=== PATIENT | male | born 1960 | race Caucasian/White ===

== ENCOUNTER 2024-01-20 15:26 | Outpatient (AMB) | payer BC, SELFPAY ==
--- NOTE | 2024-01-20 15:24 | MHC.PC.OV ---
Vital Signs 01/20/24 15:26 Height 6 ft Weight 175 lb 6 oz BMI 23.8 BP 126/64 Blood Pressure Location Lt brachial Position Sitting Respiration 16 Pulse 62 Pulse Source Pulse Oximeter Pulse Oximetry (%) 99 Oxygen Delivery Method Room Air Intake Visit Reasons: REC THERAPIST Intake Note: Patient is a new patient here to establish care for Right Shoulder pain radiating down to the wrist, DMII and Right Hip pain. Pt concern today is short term memory issue. Transferring care fromDr. Al Adler MD. Medical records have been requested today. Interactive Marketing Strategist Required: No Accompanied by: Self / Same As Patient Allergies sulfacetamide Allergy (Verified 01/20/24 15:44) Hives Medication List - Last Reconciled 01/20/24 by COLETTE Sun-Kassie ascorbic acid (vitamin C) mg PO atorvastatin 10 mg PO BEDTIME bupropion HCl (Wellbutrin XL) 300 mg PO QAM cyanocobalamin (vitamin B-12) 1,000 mcg PO DAILY levothyroxine 75 mcg PO DAILY lisinopril 10 mg PO DAILY magnesium oxide 420 mg PO DAILY metformin 1,000 mg PO BID omega-3 fatty acids 1,000 mg PO DAILY sertraline (Zoloft) 200 mg PO DAILY thiamine HCl (vitamin B1) 100 mg PO DAILY Tobacco use date assessed: 01/20/24 Dental Screening Dental Screen Date: 01/20/24 Did you have a dental visit in the last 12 months?: Yes Did you have a dental problem in the last 6 months where you did not have access to dental care?: No HPI REC THERAPIST HPI Details Patient is a 63-year-old male here today for a new patient visit. Previous PCP at [facility], was not satisfied with her care.. Patient has a past medical history significant for major depressive disorder, type 2 diabetes, hypothyroidism, hyperlipidemia, hypertension. Concerns--> reports over the last several months having right lower lumbar spine pain that sometimes radiates down right lower extremity. Also having right shoulder pain that radiates down into his biceps in right elbow. He has had x-rays of both his shoulder and his lower back that did show some mild evidence of arthritis. .. DMII: Has been well controlled with his diet and physical activity. He does takes metformin a 1000 b.i.d.. Today's A1c acceptable at 5.3. .. Hypothyroidism: Continues on levothyroxine 75 mcg and he reports TSH has been stable. 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 Cataracts, both eyes Chronic right shoulder pain Bilateral leg pain Anxiety Social History Housing: House Patient Tobacco Use Status: Never used Tobacco e-Cigarette/Vaping Use: Former Use service: No Current occupational status: employed Cognitive needs: No Hearing needs: Yes Vision needs: Yes Review of Systems Const Denies headache(s) Eyes Denies loss of vision ENT Denies vertigo, Denies dizziness, Denies headache(s) and Denies sore throat Card Denies chest pain, Denies leg edema and Denies lightheadedness Resp Denies cough, Denies hemoptysis and Denies wheezing GI Denies abdominal pain, Denies melena, Denies constipation, Denies diarrhea and Denies vomiting Denies dysuria, Denies urinary frequency and Denies urinary urgency Musc Denies arthralgias, Denies joint swelling, Denies numbness and Denies tingling Neuro Denies Abnormal speech present, Denies behavioral changes, Denies vertigo, Denies dizziness, Denies headache(s), Denies loss of vision, Denies memory loss, Denies numbness and Denies tingling Psych Denies anxiety, Denies behavioral changes, Denies depression, Denies memory loss and Denies panic attacks Branden/Lymph Denies easy bleeding and Denies easy bruising Aller/Immun Denies wheezing Physical exam (Primary Care) Vital Signs: Last Vital Signs Pulse 62 01/20/24 15:26 Resp 16 01/20/24 15:26 BP 126/64 01/20/24 15:26 Pulse Ox 99 01/20/24 15:26 Oxygen Delivery Method Room Air 01/20/24 15:26 BMI result Body Mass Index 23.8 Tobacco/Smoking Status: Tobacco use Status Tobacco use date assessed 01/20/24 01/20/24 15:34 Patient Tobacco Use Status Never used Tobacco 01/20/24 15:34 e-Cigarette/Vaping Use Former Use 01/20/24 15:34 Const General: healthy appearing, no acute distress, alert and awake Nutritional Appearance: well nourished Orientation/consciousness: oriented to person, oriented to place and oriented to time HENMT Ears: TM's normal bilaterally General nose exam: Normal nasal mucous membranes and turbinates present Eyes Conjunctivae: conjunctivae normal Sclerae: sclerae normal Pupils: Equal, round and reactive pupils present Neck Neck: Yes no lymphadenopathy and Yes no JVD Thyroid: Thyroid normal Carotids: no bruits Resp Effort & Inspection: normal respiratory effort and not tachypneic Auscultation: no crackles, no rales, no rhonchi and no wheezes Cardio Rate: regular rate Rhythm: regular rhythm Heart sounds: no murmurs and normal S1 and S2 GI Palpation (GI): Soft to palpation, nontender, no hepatomegaly and no splenomegaly Auscultation: normal bowel sounds Skin General skin exam: no rashes or lesions noted and dry skin Neuro General: oriented to person, oriented to place and oriented to time Cranial nerves: Yes Equal, round and reactive pupils present Speech: No Abnormal speech present Gait exam (Neuro): Normal gait present Motor exam (neuro): no tremor noted Extrem Right upper extremity: full ROM Left upper extremity: full ROM Right lower extremity: full ROM; no edema Left lower extremity: full ROM; no edema Psych Mental Status: mental status grossly normal Speech and movement: Normal speech and movement present Affect: normal affect Attitude: cooperative Thought process: Normal thought process present Results AMB Hemoglobin A1c AMB Hemoglobin A1c 5.3 % Last Edit by ARELY Bull on 01/20/24 16:07 Results Reviewed Results Reviewed: Laboratory Last Values Hgb A1c (Clinic) 5.3 % (4.0-6.0) 01/20/24 16:06 Assessment and Plan Assessment & Plan (1) Depression: Code(s): F32.A - Depression, unspecified Qualifiers: Active/Remission status: currently active Depression Type: major depressive disorder Major depression episode severity: mild Major depression recurrence: recurrent Qualified Code(s): F33.0 - Major depressive disorder, recurrent, mild Plan: Patient is followed by a psychiatrist and mental health therapist. He does report a lot of side her trauma that he still deals with. He does get his mental health medication from his mental health med provider. (2) Type 2 diabetes mellitus without obesity: Code(s): E11.9 - Type 2 diabetes mellitus without complications Plan: Patient has controlled type 2 diabetes and continues on metformin a 1000 b.i.d.. Today's A1c acceptable. Goal A1c is to remain below 7.0 (3) Lumbar spine pain: Code(s): M54.50 - Low back pain, unspecified Plan: Reports he has been having right lower lumbar spine pain. He does not recall any acute trauma or recent falls. He did have x-ray of his lumbar spine that did show spondylosis.. He does use [id number] NSAIDs with only minimal relief of his pain. Will send for repeat x-rays. He will likely benefit from physical therapy (4) Right shoulder pain: Code(s): M25.511 - Pain in right shoulder Qualifiers: Chronicity: chronic Qualified Code(s): M25.511 - Pain in right shoulder; G89.29 - Other chronic pain Plan: Reports right shoulder pain particularly when doing [id number] exercises. He does report some pain that radiates down into his biceps and right elbow. Likely has a tendinopathy in his right shoulder. He would like to see orthopedic for possible cortisone injection. (5) Hypothyroid: Code(s): E03.9 - Hypothyroidism, unspecified Qualifiers: Hypothyroidism type: unspecified Qualified Code(s): E03.9 - Hypothyroidism, unspecified Plan: Patient has long history of hypothyroidism. Did have hyperparathyroidism that was fixed surgically. Continues on levothyroxine 75 mcg. Will check TSH to assure normal. (6) HLD (hyperlipidemia): Code(s): E78.5 - Hyperlipidemia, unspecified Qualifiers: Hyperlipidemia type: mixed hyperlipidemia Qualified Code(s): E78.2 - Mixed hyperlipidemia Plan: Patient does continue on statin therapy without any notable side effects. Will check his lipid panel to ensure LDL below 100. Orders: Orders Comprehensive [facility]. Panel Fast 01/20/24 E11.9 - Type 2 diabetes mellitus without complications XR lumbar spine 2-3V 01/20/24 M54.50 - Low back pain, unspecified XR shoulder RT min 2V 01/20/24 G89.29 - Other chronic pain, M25.511 - Pain in right shoulder AMB Hemoglobin A1c 01/20/24 E11.9 - Type 2 diabetes mellitus without complications Lipid Panel 01/20/24 E78.5 - Hyperlipidemia, unspecified TSH reflex Free T4 01/20/24 E03.9 - Hypothyroidism, unspecified Prostate Specific Antigen Scr 01/20/24 E03.9 - Hypothyroidism, unspecified, Z12.5 - Encounter for screening for malignant neoplasm of prostate PT Evaluation and Treatment 01/20/24 M54.50 - Low back pain, unspecified Referrals Orthopedics Referral G89.29 - Other chronic pain, M25.511 - Pain in right shoulder Coding Level of Care Code Tele Est Pt Level 4 (03585) Diagnoses Mild episode of recurrent major depressive disorder F33.0 Active/Remission status: currently active Depression Type: major depressive disorder Major depression episode severity: mild Major depression recurrence: recurrent Type 2 diabetes mellitus without obesity E11.9 Lumbar spine pain M54.50 Chronic right shoulder pain M25.511; G89.29 Chronicity: chronic Hypothyroidism, unspecified type E03.9 Hypothyroidism type: unspecified Mixed hyperlipidemia E78.2 Hyperlipidemia type: mixed hyperlipidemia
[2024-01-20 15:26] VITALS: BP 126/64; PULSE 62; RESP 16; O2SAT 99; BMI 23.8
== END 2024-01-20 16:18 | disposition home or self-care (01) ==
PROVIDERS: PCP Physician Assistant; Visit Provider Physician Assistant
DX: E11.9 Type 2 diabetes mellitus without complications (principal)
CPT/HCPCS: 83036; 99214

== ENCOUNTER 2024-01-20 16:29 | Outpatient (REF) | payer BC, SELFPAY ==
--- NOTE | ~2024-01-20 | XR_ITS ---
EXAMINATION: XR LUMBOSACRAL SPINE CLINICAL INFORMATION: Low back pain COMPARISON: None available. TECHNIQUE: Three views of the lumbosacral spine. FINDINGS: Degenerative changes are present in the visualized lower thoracic spine. There is marked degenerative change noted at L2-L3 with endplate sclerosis osteophytes and grade 1 retrolisthesis. Mild disc space narrowing is present at L3-L4 and L5-S1. No bony destructive lesions or fractures. XR/XR lumbar spine 2-3V IMPRESSION: Degenerative changes as described above.
--- NOTE | ~2024-01-20 | XR_ITS ---
EXAMINATION: XR SHOULDER, RIGHT CLINICAL INFORMATION: Right shoulder pain COMPARISON: None available. TECHNIQUE: AP external rotation, Grashey, scapular Y, and axillary views of the right shoulder. FINDINGS: There is mild acromioclavicular osteoarthritis. Glenohumeral joint is well preserved. No fracture. Alignment is anatomic. Soft tissues are normal with no abnormal calcifications. XR/XR shoulder RT min 2V IMPRESSION: Mild acromioclavicular osteoarthritis.
== END 2024-01-20 16:30 | disposition home or self-care (01) ==
LOC: HO.XRAY 16:29
PROVIDERS: PCP Physician Assistant; Visit Provider Physician Assistant
DX: M54.50 Low back pain, unspecified (principal); M25.511 Pain in right shoulder; G89.29 Other chronic pain
CPT/HCPCS: 72100; 73030

== ENCOUNTER 2024-01-30 09:57 | Outpatient (AMB) | payer BC, SELFPAY ==
[2024-01-30 10:00] VITALS: BMI 23.7
--- NOTE | 2024-01-30 10:00 | A.OFFVIS_ITS ---
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 Patient reports his pain has been going on for about 3 years and is a 3 on the 1-10 pain scale. He states his pain is worse at the end of the day. He denies injury, injections, and surgery. He would like a cortisone injection. The patient did undergo left shoulder surgery several years ago performed by another provider. He reports mild intermittent discomfort in his left shoulder. He has tried Tylenol and anti-inflammatory medicines which gave him minimal relief. He would like to hold off on surgery for as long as possible. Allergies sulfacetamide Allergy (Verified 01/30/24 10:09) Hives Medication List - Last Reconciled 01/30/24 by Christofer Carballo MD ascorbic acid (vitamin C) mg PO atorvastatin 10 mg PO BEDTIME bupropion HCl (Wellbutrin XL) 300 mg PO QAM cyanocobalamin (vitamin B-12) 1,000 mcg PO DAILY levothyroxine 75 mcg PO DAILY 90 days lisinopril 10 mg PO DAILY magnesium oxide 420 mg PO DAILY metformin 1,000 mg PO BID omega-3 fatty acids 1,000 mg PO DAILY sertraline (Zoloft) 200 mg PO DAILY thiamine HCl (vitamin B1) 100 mg PO DAILY [facility] Medical History (Updated 01/30/24 @ 10:38 by Christofer Carballo MD) Acquired underactive thyroid Astigmatism Calculus of kidney in male Parathyroid hormone excess Unspecified essential hypertension Vitamin D deficiency Type 2 diabetes mellitus without obesity Slow heart rate History of varicose veins Right hip pain Elevated cholesterol with high triglycerides Gout Depression Chronic 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 Cataracts, both eyes Chronic right shoulder pain Bilateral leg pain Anxiety Social History (Updated 01/30/24 @ 10:10 by Christine Guzmán CMA) Housing: House Patient Tobacco Use Status: Never used Tobacco e-Cigarette/Vaping Use: Former Use service: No Current occupational status: employed Current occupation: [employer], Right hand dominate Cognitive needs: No Hearing needs: Yes Vision needs: Yes Physical Exam Vital Signs: BMI result Body Mass Index 23.7 Const Other: Well-nourished well-developed very friendly male awake alert and oriented x3 in no acute distress Extrem Other: Bilateral upper extremity examination shows good capillary refill, no skin lesions noted, normal sensation light touch Right shoulder examination shows almost full range motion when compared to his left shoulder, 4+ out of 5 strength with supraspinatus testing, positive impingement signs, tenderness over his acromioclavicular joint, no instability Office Procedures Joint Injection/Drain Joint Injection/Drain Primary Site: right shoulder Prep: site was prepped using aseptic technique Injected: 40 mg of, DepoMedrol and 1% plain lidocaine Procedure: The patient tolerated the procedure well Coding - Large joint Procedure code (CPT) selection complete Results Reviewed Results Reviewed: X-rays of the patient's right shoulder show severe acromioclavicular joint narrowing, a type 2 acromion, no acute bony abnormalities Assessment & Plan Assessment & Plan (1) Impingement of right shoulder: Code(s): M25.811 - Other specified joint disorders, right shoulder Plan Mr. Roberto presents with right shoulder pain due to impingement syndrome, acromioclavicular joint arthritis and rotator cuff tendinosis versus possible rotator cuff tearing. I had a lengthy discussion with the patient regarding the treatment options. The risks and benefits of a right shoulder cortisone injection were discussed at length with the patient. The patient wished to proceed with the injection. He tolerated the injection well. The do's and don'ts of lifting were discussed at length with the patient. He will follow up with me on an as-needed basis should his symptoms not plateau at an unacceptable level over the next few months. Feel free to call me at any time should questions regarding his orthopedic management arise. Thank you very much for asking me to see this very friendly gentleman. I spent 19 minutes in reviewing the patient's records and imaging studies, seeing the patient and documenting in the medical record. Orders: Orders AMB Joint Injection/Aspiration Today M25.811 - Other specified joint disorders, right shoulder Coding Level of Care Code New Pt Level 2 (91361) Diagnoses Impingement of right shoulder M25.811 CPT Codes Coding - Large joint: 61246 - Large joint ([id number])
== END 2024-01-30 10:35 | disposition home or self-care (01) ==
PROVIDERS: PCP Physician Assistant; Visit Provider Orthopaedic Surgery
DX: M25.811 Other specified joint disorders, right shoulder (principal)
CPT/HCPCS: 20610; 99204

== ENCOUNTER → 2024-01-30 09:57 | Outpatient (BNVA) | payer BC, SELFPAY | PROVIDERS: PCP Physician Assistant; Visit Provider Orthopaedic Surgery | DX: M25.811 Other specified joint disorders, right shoulder (principal) | CPT/HCPCS: 20610; J1020 ==

== ENCOUNTER 2024-06-30 08:33 | Outpatient (REF) | payer BC, SELFPAY ==
[2024-06-30 11:06] LABS: Alanine Aminotransferase 33 U/L (0-40); Albumin Level 4.4 g/dL (3.5-5.0); Alkaline Phosphatase 46 U/L (39-117); Anion Gap 9 (12-20); Aspartate Amino Transferase 30 U/L (5-37); Bilirubin Total 1.1 mg/dL (0.0-1.0); Blood Urea Nitrogen 18 mg/dL (9-16); Calcium 9.4 mg/dL (8.4-10.2); Carbon Dioxide 26 mmol/L (22-29); Chloride 108 mmol/L (96-108); Cholesterol 151 mg/dL (<200); Estimated Glomerular Filt Rate > 60; Glucose Fasting 112 mg/dL (60-99); HDL Cholesterol 48 mg/dL (>40); LDL Cholesterol Calculated 85 mg/dL (<100); Sodium 139 mmol/L (135-145); Total Protein 6.9 g/dL (6.5-8.0); Triglycerides 94 mg/dL (<150)
[2024-06-30 11:08] LABS: TSH reflex Free T4 2.14 uIU/mL (0.32-4.0)
[2024-06-30 11:31] LABS: Prostate Specific Antigen Scr 0.91 ng/mL (<0.05-4.0)
== END 2024-06-30 08:34 | disposition home or self-care (01) ==
LOC: HO.HMGCLDS 08:33
PROVIDERS: PCP Physician Assistant; Visit Provider Physician Assistant
DX: E11.9 Type 2 diabetes mellitus without complications (principal); E78.5 Hyperlipidemia, unspecified; E03.9 Hypothyroidism, unspecified; Z12.5 Encounter for screening for malignant neoplasm of prostate
CPT/HCPCS: 36415; 80053; 80061; 84153; 84443

== ENCOUNTER 2024-07-15 15:02 | Outpatient (AMB) | payer BC, SELFPAY ==
--- NOTE | 2024-07-15 15:03 | MHC.OFFVIS ---
Vital Signs 07/15/24 15:04 Height 6 ft Weight 175 lb BMI 23.7 Intake Visit Reasons: Right shoulder pain, Low back pain Intake Note: Brionna is a 63 year old Right hand dominate male who presents who presents today for a follow up for his right shoulder, last injection 01/30/24. Patient states that the last injection didn't help so he doesn't want to repeat. The patient does report progressively worsening low back pain which radiates into the posterior aspect of his right leg. The patient also reports intermittent weakness in his leg. He also has intermittent neck pain. He is not sure if he wants to get an MRI because of the potential [id number] cost. Allergies sulfacetamide Allergy (Verified 07/15/24 15:04) Hives Medication List - Last Reconciled 07/15/24 by Christofer Carballo MD ascorbic acid (vitamin C) mg PO atorvastatin 10 mg PO BEDTIME bupropion HCl XL (Wellbutrin XL) 300 mg PO QAM cyanocobalamin (vitamin B-12) 1,000 mcg PO DAILY levothyroxine 75 mcg PO DAILY 90 days lisinopril 10 mg PO DAILY magnesium oxide 420 mg PO DAILY metformin ER 750 mg PO DAILY 30 days omega-3 fatty acids 1,000 mg PO DAILY sertraline (Zoloft) 200 mg PO DAILY thiamine HCl (vitamin B1) 100 mg PO DAILY [facility] Medical History (Updated 07/15/24 @ 15:42 by Christofer Carballo MD) Acquired underactive thyroid Astigmatism Calculus of kidney in male Parathyroid hormone excess Unspecified essential hypertension Vitamin D deficiency Type 2 diabetes mellitus without obesity Slow heart rate History of varicose veins Right hip pain Elevated cholesterol with high triglycerides Gout Depression Chronic 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 Cataracts, both eyes Chronic right shoulder pain Bilateral leg pain Anxiety Social History (Updated 01/30/24 @ 10:10 by Christine Guzmán CMA) Housing: House Patient Tobacco Use Status: Never used Tobacco e-Cigarette/Vaping Use: Former Use service: No Current occupational status: employed Current occupation: [employer], Right hand dominate Cognitive needs: No Hearing needs: Yes Vision needs: Yes Physical Exam Vital Signs: BMI result Body Mass Index 23.7 Const Other: Well-nourished well-developed very friendly male awake alert and oriented x3 in no acute distress Back/Spine/Pelvis Other: Low back examination shows right-sided paraspinal muscle tenderness as well as tenderness over his right sacroiliac joint, no overlying skin lesions, positive straight leg raise test on the right at 70 degrees Extrem Other: Right shoulder examination shows almost full range of motion when compared to his left shoulder, 4+ out of 5 strength with testing of his supraspinatus muscle, no instability Assessment & Plan Assessment & Plan (1) Low back pain: Code(s): M54.50 - Low back pain, unspecified Category: Medical (2) Right shoulder pain: Code(s): M25.511 - Pain in right shoulder Category: Medical Qualifiers: Chronicity: chronic Qualified Code(s): M25.511 - Pain in right shoulder; G89.29 - Other chronic pain Plan Mr. Roberto presents with right shoulder pain due to impingement syndrome as well as low back pain which radiates into his right leg possibly due to lumbar stenosis or a disc herniation. I had a lengthy discussion with the patient regarding the treatment options. The patient wishes to hold off on another cortisone injection for now. I did place a referral to the pain management Department here at [facility] for further evaluation of his chronic neck and back pains. The patient does not wish to get an MRI at this time. He will follow up with me on an as-needed basis should his shoulder pain worsen in any way. Feel free to call me at any time should questions regarding his orthopedic management arise. I spent 20 minutes in reviewing the patient's records and imaging studies, seeing the patient and documenting in the medical record. Orders: Orders XR cervical spine 2V Today M54.2 - Cervicalgia Referrals Pain Management Referral M54.2 - Cervicalgia, M54.50 - Low back pain, unspecified Coding Level of Care Code Est Pt Level 3 (40639) Diagnoses Low back pain M54.50 Chronic right shoulder pain M25.511; G89.29 Chronicity: chronic
[2024-07-15 15:04] VITALS: BMI 23.7
== END 2024-07-15 15:34 | disposition home or self-care (01) ==
PROVIDERS: PCP Physician Assistant; Visit Provider Orthopaedic Surgery
DX: M54.50 Low back pain, unspecified (principal); M25.511 Pain in right shoulder; G89.29 Other chronic pain
CPT/HCPCS: 99213

== ENCOUNTER 2024-07-15 16:32 | Outpatient (REF) | payer BC, SELFPAY | END 2024-07-15 16:33 | disposition home or self-care (01) | LOC: HO.HOSX 16:32 | PROVIDERS: Visit Provider Orthopaedic Surgery | DX: Z13.89 Encounter for screening for other disorder (principal) ==

== ENCOUNTER 2024-07-29 08:40 | Outpatient (AMB) | payer BC, SELFPAY ==
--- NOTE | 2024-07-29 09:10 | A.OFFPC_ITS ---
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 Accompanied by: Spouse Allergies sulfacetamide Allergy (Verified 07/29/24 09:31) Hives Medication List - Last Reconciled 07/29/24 by Ernesto Sim PA-C ascorbic acid (vitamin C) mg PO atorvastatin 10 mg PO BEDTIME bupropion HCl XL (Wellbutrin XL) 300 mg PO QAM cyanocobalamin (vitamin B-12) 1,000 mcg PO DAILY levothyroxine 75 mcg PO DAILY 90 days lisinopril 10 mg PO DAILY magnesium oxide 420 mg PO DAILY metformin ER 750 mg PO DAILY 30 days omega-3 fatty acids 1,000 mg PO DAILY sertraline (Zoloft) 200 mg PO DAILY thiamine HCl (vitamin B1) 100 mg PO DAILY Tobacco use date assessed: 01/20/24 Fall risk assessment: No Falls in past year Last assessed Fall Risk: 07/29/24 Dental Screening Dental Screen Date: 01/20/24 HPI ?early stages of dementia HPI Details Patient is a 64-year-old male here today for follow-up visit Patient has a past medical history significant for major depressive disorder, type 2 diabetes, hypothyroidism, hyperlipidemia, hypertension. Concerns--> today patient has concerns about his memory. He reports often forgetting where he places things, often forgetting where he is going and trying to find words often. He did retire a few years ago from an [employer] position. Family is getting concerned about patient's mental health and memory impairment. He has been speaking with a psychiatrist though feels they are not helping him. He currently is on high doses of Wellbutrin and sertraline and will speak with a psychiatrist perhaps about reducing his doses. PLAN: Will send for brain MRI due to his memory issues to rule out a intracranial pathology, He is interested in establishing care with a neurologist .. Lumbar spine arthritis: Has seen Orthopedics for his lumbar spine arthritis and was referred to pain management for pain reduction modality. Unfortunately continues to have both neck and lower back pain and is willing to try a muscle relaxer to help reduce his pain. .. DMII: Has been well controlled with his diet and physical activity. He does takes metformin a 1000 b.i.d.. Today's A1c acceptable at 5.1. PLAN: Will reduce his metformin dose to a 1000 q.d. as his type 2 diabetes has been well controlled to reduce any occurrence of hypoglycemia .. Hypothyroidism: Continues on levothyroxine 75 mcg and he reports TSH has been stable. .. MDD: Does see a [employer] (Dr Jhaveri) whom he does not believe is helping him. Again we discussed his doses of mental health medication may be a bit too high. He does report feeling shaky and jittery at times which may be related to his Wellbutrin. Also continues on fairly high dose of Zoloft as well at 200 mg. He has upcoming appointment with the psychiatrist and will speak with them about reducing his dose mental health medication Laboratory Tests 06/30/24 08:38 Creatinine 1.04 Fasting Glucose 112 H Cholesterol 151 PSA Screen 0.91 TSH 2.14 [facility] Medical History (Updated 07/29/24 @ 09:57 by Ernesto Sim PA-C) Acquired underactive thyroid Astigmatism Calculus of kidney in male Parathyroid hormone excess Unspecified essential hypertension Vitamin D deficiency Type 2 diabetes mellitus without obesity Slow heart rate History of varicose veins Right hip pain Elevated cholesterol with high triglycerides Gout Depression Chronic 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 1. Little interest or pleasure in doing things: more than half the days 2. Feeling down, depressed, or hopeless: more than half the days 3. Trouble falling or staying asleep, or sleeping too much: nearly every day 4. Feeling tired or having little energy: more than half the days 5. Poor appetite or overeating: more than half the days 6. Feeling bad about yourself - or that you are a failure or have let yourself or your family down: more than half the days 7. Trouble concentrating on things, such as reading the newspaper or watching television: nearly every day 8. Moving or speaking so slowly that other people could have noticed. Or the opposite - being so fidgety or restless that you have been moving around a lot more than usual: more than half the days 9. Thoughts that you would be better off or of hurting yourself in some way: not at all Total score: 18 Depression Screening Interpretation: Positive Depression Screening Follow-up: Existing condition and In treatment Depression Screening Done: Yes 63823 - PHQ-9 Billing: Yes Source: Developed by Drs. Bladimir Terrell, Radha Mascorro, Ravin Tadeo and colleagues, with an educational andre from [employer]. Thrive Questionnaire Date Thrive assessed: 07/29/24 I am a: Patient What is your living situation today?: I have a place to live, but I am worried about losing it in the future Within the past 12 months, did the food you bought not last and you didn't have the money to get more?: Never true Within the past 12 months, did you worry whether your food would run out before you got money to buy more?: Never true Do you have trouble paying for medicines?: No Do you have trouble getting transportation to medical appointments?: No Do you have trouble paying your heating and electricity bill?: No Do you have trouble taking care of your child, family member or friend?: No Do you have trouble with day-to-day activities such as bathing, preparing meals, shopping, managing finances, etc.?: No Are you currently unemployed and looking for a job?: No Are you interested in more education?: No Please select the resources that you would like help with: None Currently or been in a relationship where the following occur: No concerns reported THRIVE Score: 1 AUDIT C Alcohol Use Questionnaire (AUDIT-C) 1. How often do you have a drink containing alcohol?: Never 3. How often do you have six or more drinks on one occasion?: Never Total Score: 0 BONIFACIO-7 AMB Questionnaire BONIFACIO-7 Date BONIFACIO - 7 assessed: 07/29/24 Feeling nervous, anxious, or on edge: 3 = Nearly every day Not being able to stop or control worryin = Nearly every day Worrying too much about different things: 3 = Nearly every day Trouble relaxin = Nearly every day Being so restless that it is hard to sit still: 3 = Nearly every day Becoming easily annoyed or irritable: 3 = Nearly every day Feeling afraid as if something awful might happen: 3 = Nearly every day Total BONIFACIO-7 score (0-4 normal; 5-9 mild; 10-14 moderate; 15-21 severe): 21 Source: Developed by Drs. Bladimir Terrell, Radha Mascorro, Ravin Tadeo and colleagues, with an educational andre from [employer]. BONIFACIO-7 Assessment Billing BONIFACIO-7 Assessment Tool: BONIFACIO-7 Assessment 51831 Review of Systems Const Denies headache(s) Eyes Denies loss of vision ENT Denies vertigo, Reports dizziness, Denies headache(s) and Denies sore throat Card Denies chest pain, Denies leg edema and Reports lightheadedness Resp Denies cough, Denies hemoptysis and Denies wheezing GI Denies abdominal pain, Denies melena, Denies constipation, Denies diarrhea and Denies vomiting Denies dysuria, Denies urinary frequency and Denies urinary urgency Musc Denies arthralgias, Denies joint swelling, Denies numbness and Denies tingling Neuro Denies Abnormal speech present, Denies behavioral changes, Denies vertigo, Reports dizziness, Denies headache(s), Denies loss of vision, Reports memory loss, Denies numbness and Denies tingling Psych Reports anxiety, Denies behavioral changes, Denies depression, Reports difficulty concentrating, Reports irritability, Reports memory loss and Denies panic attacks Branden/Lymph Denies easy bleeding and Denies easy bruising Aller/Immun Denies wheezing Physical exam (Primary Care) Vital Signs: Last Vital Signs Pulse 47 L 07/29/24 09:11 Resp 16 07/29/24 09:11 BP 144/80 H 07/29/24 09:11 Pulse Ox 100 07/29/24 09:11 Oxygen Delivery Method Room Air 07/29/24 09:11 BMI result Body Mass Index 23.3 Tobacco/Smoking Status: Tobacco use Status Tobacco use date assessed 01/20/24 07/29/24 09:23 Patient Tobacco Use Status Never used Tobacco 07/29/24 09:23 e-Cigarette/Vaping Use Former Use 07/29/24 09:23 PHQ-9: PHQ-9 Score PHQ-9: Total score 18 07/29/24 12:07 Depression Screening Interpretation: Positive Depression Screening Follow-up: Ex isting condition and In treatment Thrive Assessment: Date of Thrive Assessment Date Thrive assessed 07/29/24 07/29/24 09:23 Currently or been in a relationship where the following occur: No concerns reported Const General: healthy appearing, no acute distress, alert and awake Nutritional Appearance: well nourished Orientation/consciousness: oriented to person, oriented to place and oriented to time HENMT Ears: TM's normal bilaterally General nose exam: Normal nasal mucous membranes and turbinates present Eyes Conjunctivae: conjunctivae normal Sclerae: sclerae normal Pupils: Equal, round and reactive pupils present Neck Neck: Yes no lymphadenopathy and Yes no JVD Thyroid: Thyroid normal Carotids: no bruits Resp Effort & Inspection: normal respiratory effort and not tachypneic Auscultation: no crackles, no rales, no rhonchi and no wheezes Cardio Rate: regular rate Rhythm: regular rhythm Heart sounds: no murmurs and normal S1 and S2 GI Palpation (GI): Soft to palpation, nontender, no hepatomegaly and no splenomegaly Auscultation: normal bowel sounds Skin General skin exam: no rashes or lesions noted and dry skin Neuro General: oriented to person, oriented to place and oriented to time Cranial nerves: Yes Equal, round and reactive pupils present Speech: No Abnormal speech present Gait exam (Neuro): Normal gait present Motor exam (neuro): no tremor noted Extrem Right upper extremity: full ROM Left upper extremity: full ROM Right lower extremity: full ROM; no edema Left lower extremity: full ROM; no edema Psych Mental Status: mental status grossly normal Speech and movement: Normal speech and movement present Affect: normal affect Attitude: cooperative Thought process: Normal thought process present Results AMB Hemoglobin A1c AMB Hemoglobin A1c 5.1 % Last Edit by ARELY Bull on 07/29/24 12:08 Results Reviewed Results Reviewed: Laboratory Last Values Hgb A1c (Clinic) 5.1 % (4.0-6.0) 07/29/24 12:07 Assessment and Plan Assessment & Plan (1) Memory impairment: Code(s): R41.3 - Other amnesia Plan: As per HPI patient reports worsening memory impairment. Often forgetting where he places things and often getting lost while driving. He believes he has some kind of a dementia or Alzheimer's. Will start workup with brain MRI and refer to Neurology for his memory impairment. He is quite possible he has too high doses of SSRI and Wellbutrin as he is on Wellbutrin 300 mg and sertraline 200 mg. He does report signs symptoms of feeling a bit shaky and some numbness and tingling all over his head, does seem somewhat anxious today in office.. Advised to speak with a psychiatrist to perhaps reduced doses. Will also try to send patient for a neuropsych eval as he has been having progressive anxious and depressive symptoms along with some memory impairment. There does seem to be some neuropsych issue going on here. (2) Depression: Code(s): F32.A - Depression, unspecified Qualifiers: Active/Remission status: currently active Depression Type: major depressive disorder Major depression episode severity: mild Major depression recurrence: recurrent Qualified Code(s): F33.0 - Major depressive disorder, recurrent, mild Plan: Patient's PHQ-9 score positive for depression which has been existing condition for him.. Patient is followed by a psychiatrist and mental health therapist. He does report a lot of side her trauma that he still deals with. He does get his mental health medication from his mental health med provider. (3) Type 2 diabetes mellitus without obesity: Code(s): E11.9 - Type 2 diabetes mellitus without complications Plan: Patient has controlled type 2 diabetes and continues on metformin a 1000 b.i.d.. Today's A1c acceptable. Will decrease his metformin dose to a 1000 mg daily to reduce any occurrence of hypoglycemia Goal A1c is to remain below 7.0 (4) Lumbar spine pain: Code(s): M54.50 - Low back pain, unspecified Plan: Reports he has been having right lower lumbar spine pain. He does not recall any acute trauma or recent falls. He did have x-ray of his lumbar spine that did show spondylosis.. He does use [id number] NSAIDs with only minimal relief of his pain. Will try muscle relaxer to help reduce his pain. He will likely benefit from physical therapy (5) Hypothyroid: Code(s): E03.9 - Hypothyroidism, unspecified Qualifiers: Hypothyroidism type: unspecified Qualified Code(s): E03.9 - Hypothyroidism, unspecified Plan: Patient has long history of hypothyroidism. Did have hyperparathyroidism that was fixed surgically. Continues on levothyroxine 75 mcg. Will check TSH to assure normal. (6) HLD (hyperlipidemia): Code(s): E78.5 - Hyperlipidemia, unspecified Qualifiers: Hyperlipidemia type: mixed hyperlipidemia Qualified Code(s): E78.2 - Mixed hyperlipidemia Plan: Patient does continue on statin therapy without any notable side effects. Will check his lipid panel to ensure LDL below 100. (7) Cervical spine pain: Code(s): M54.2 - Cervicalgia Plan: Patient reports having cervical spine pain neck on radiates down his arm and up to the back of his head at times. Orders: Orders MR head/brain wo con 07/29/24 R41.3 - Other amnesia Lipid Panel 07/29/24 E78.2 - Mixed hyperlipidemia Comprehensive [place]. Panel Fast 07/29/24 E11.9 - Type 2 diabetes mellitus without complications Complete Blood Count no Diff 07/29/24 E11.9 - Type 2 diabetes mellitus without complications AMB Hemoglobin A1c 07/29/24 E11.9 - Type 2 diabetes mellitus without complications TSH reflex Free T4 07/29/24 E03.9 - Hypothyroidism, unspecified Referrals Neuropsychiatry Referral R41.3 - Other amnesia Medications: New blood-glucose meter (FreeStyle Crystal [place] Lite kit) As directed 1 ea 1RF E11.9 - Type 2 diabetes mellitus without complications cyclobenzaprine 5 mg PO BEDTIME 30 tabs 1RF 30 days M54.2 - Cervicalgia blood sugar diagnostic (FreeStyle Lite Strips) test once per day as needed 100 ea 3RF E11.9 - Type 2 diabetes mellitus without complications metformin ER 500 mg PO DAILY 90 tabs 1RF 90 days E11.9 - Type 2 diabetes mellitus without complications Discontinued metformin ER Discontinued Reason: Doctor's Order 750 mg PO DAILY 30 days 30 tabs 1RF E11.9 - Type 2 diabetes mellitus without complications Coding Level of Care Code Est Pt Level 4 (51661) Diagnoses Memory impairment R41.3 Mild episode of recurrent major depressive disorder F33.0 Active/Remission status: currently active Depression Type: major depressive disorder Major depression episode severity: mild Major depression recurrence: recurrent Type 2 diabetes mellitus without obesity E11.9 Lumbar spine pain M54.50 Hypothyroidism, unspecified type E03.9 Hypothyroidism type: unspecified Mixed hyperlipidemia E78.2 Hyperlipidemia type: mixed hyperlipidemia Cervical spine pain M54.2 Additional Codes BONIFACIO-7 Assessment Billing - BONIFACIO-7 Assessment Tool: BONIFACIO-7 Assessment 60995 ([id number])
[2024-07-29 09:11] VITALS: BP 144/80; PULSE 47; RESP 16; O2SAT 100; BMI 23.3
== END 2024-07-29 10:14 | disposition home or self-care (01) ==
PROVIDERS: PCP Physician Assistant; Visit Provider Physician Assistant
DX: E11.9 Type 2 diabetes mellitus without complications (principal)
CPT/HCPCS: 83036; 99214

== ENCOUNTER 2024-09-16 10:52 | Outpatient (REF) | payer BC, SELFPAY ==
--- NOTE | ~2024-09-16 | MR_ITS ---
EXAMINATION: MR BRAIN WITHOUT CONTRAST CLINICAL INFORMATION: Amnesia. COMPARISON: None available. TECHNIQUE: MRI of the brain was obtained using routine sequences without contrast. FINDINGS: No focal restricted diffusion is demonstrated to suggest acute or subacute cerebral ischemia. No evidence of acute or chronic hemorrhagic products on heme-sensitive imaging. Few nonspecific scattered foci of T2 FLAIR hyperintensity within the bifrontal lobes. No additional parenchymal signal abnormalities. Proportional prominence of the ventricles and sulcal spaces without evidence of obstructive hydrocephalus. No abnormal mass effect. No midline shift. Normal appearance of the pituitary gland. Normal positioning of the cerebellar tonsils. Normal arterial and venous vascular flow voids are present. Normal, homogeneous marrow signal. Mild mucosal thickening of the paranasal sinuses. No signal abnormalities within the mastoids. Bilateral lens extractions. MR/MR head/brain wo con IMPRESSION: 1. No acute intracranial abnormalities. 2. Minimal nonspecific white matter changes. Electronically signed by: Robert Turner DO 10/28/2024 05:52 AM [facility]
--- NOTE | 2024-09-16 11:08 | ECG_ITS ---
Test Reason : BRADYCARDIA Blood Pressure : / mmHG Vent. Rate : 058 BPM Atrial Rate : 058 BPM P-R Int : 148 ms QRS Dur : 084 ms QT Int : 420 ms P-R-T Axes : -19 058 047 degrees QTc Int : 412 ms Sinus bradycardia Otherwise normal ECG No previous ECGs available Referred By: Ernesto Sim Electronically Signed By:SHARITA LUCERO
== END 2024-09-16 10:53 | disposition home or self-care (01) ==
LOC: HO.MRI 10:52
PROVIDERS: PCP Physician Assistant; Visit Provider Physician Assistant
DX: R41.3 Other amnesia (principal); R00.1 Bradycardia, unspecified
CPT/HCPCS: 70551; 93005

== ENCOUNTER → 2024-09-16 11:08 | Outpatient (BNV) | payer BC, SELFPAY | PROVIDERS: PCP Physician Assistant; Visit Provider Internal Medicine | DX: R00.1 Bradycardia, unspecified (principal) | CPT/HCPCS: 93010 ==

== ENCOUNTER 2024-10-12 09:15 | Outpatient (AMB) | payer BC, SELFPAY ==
--- NOTE | 2024-10-12 09:19 | MHC.OFFWIV ---
Intake Vital Signs 10/12/24 09:21 Height 6 ft Weight 172 lb BMI 23.3 BP 122/80 Blood Pressure Location Rt brachial Position Sitting Pulse 51 Pulse Source Pulse Oximeter Pulse Oximetry (%) 97 Oxygen Delivery Method Room Air Intake Visit Reasons: EP ? Hernia in the groin area Intake Note: Patient here for hernia in groin are that has been present since this morning that is the size of a tennis ball. Patient Tobacco Use Status: Never used Tobacco Allergies sulfacetamide Allergy (Verified 10/12/24 09:23) Hives Do you need a note to return to daycare/school/sports/work: No HPI HPI Comments History of Present Illness Details The patient is a 64-year-old male presenting with a suspected hernia. The patient reports having awoken with a painful lump on the right side of the abdomen this morning, described as squishy, which he is unable to push back into place. The patient has experienced chronic back pain and a damaged rotator cuff, which have not been addressed due to financial constraints and lack of insurance coverage until Medicare eligibility in February. He expressed significant stress related to existing medical expenses and difficulty affording care, prioritizing essential living costs over medical visits. This acute lump is a new onset for him and is causing considerable discomfort and concern. He has a history of vascular problems and is managed for Type 2 Diabetes Mellitus. [facility] Medical History (Updated 10/12/24 @ 10:01 by Emmanuelle Mendez PA-C) Acquired underactive thyroid Astigmatism Calculus of kidney in male Parathyroid hormone excess Unspecified essential hypertension Vitamin D deficiency Type 2 diabetes mellitus without obesity Slow heart rate History of varicose veins Right hip pain Elevated cholesterol with high triglycerides Gout Depression Chronic 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 Cataracts, both eyes Chronic right shoulder pain Bilateral leg pain Anxiety Social History Housing: House Patient Tobacco Use Status: Never used Tobacco e-Cigarette/Vaping Use: Former Use service: No Current occupational status: employed Current occupation: [email or web address], Right hand dominate Cognitive needs: No Hearing needs: Yes Vision needs: Yes Review of Systems Const All systems reviewed & are unremarkable except as noted in HPI and below Physical Exam Vital Signs: Last Vital Signs Pulse 51 10/12/24 09:21 BP 122/80 10/12/24 09:21 Pulse Ox 97 10/12/24 09:21 Oxygen Delivery Method Room Air 10/12/24 09:21 BMI result Body Mass Index 23.3 Const General: cooperative, healthy appearing, well developed and acute distress (2/2 pain) mild Nutritional Appearance: average body habitus Orientation/consciousness: patient oriented x3 Limitations: no limitations HEENT Head: Yes normal to inspection Ears: hearing grossly normal bilaterally General nose exam: Normal external nose present Face and sinus: Yes normal facial exam Eyes General: appearance normal, both eyes and all related structures Neck Neck: Yes normal visual inspection and Yes full ROM Resp Effort & Inspection: normal respiratory effort and able to speak in complete sentences GI Inspection: Yes normal to inspection Palpation (GI): Soft to palpation, nontender and Hernia present (inguinal, non reducible) Skin General skin exam: no rashes or lesions noted Neuro General: patient oriented x3 Extrem General: Yes normal to inspection Assessment & Plan Assessment & Plan (1) Severe right inguinal pain: Code(s): R10.31 - Right lower quadrant pain Plan: The suspected hernia needs urgent evaluation, given the description of a non-reducible lump, which raises concern for potential incarceration or strangulation. The patient is advised to proceed to the emergency department for immediate imaging and assessment to determine the urgency of surgical intervention. Discussions included the risk of bowel ischemia in cases of strangulated hernia, necessitating prompt medical attention. The patient is encouraged to seek emergency care promptly, given the implications of delayed treatment. Patient is able to drive himself. Called [facility] ED with expect Patient was informed and verbally consented to the use of an ambient scribe for clinic note documentation during this visit. Coding Level of Care Code Est Pt Level 5 (55203) Diagnoses Severe right inguinal pain R10.31
[2024-10-12 09:21] VITALS: BP 122/80; PULSE 51; O2SAT 97; BMI 23.3
== END 2024-10-12 10:19 | disposition home or self-care (01) ==
PROVIDERS: PCP Physician Assistant; Visit Provider Physician Assistant
DX: R10.31 Right lower quadrant pain (principal)

== ENCOUNTER → 2024-10-12 09:15 | Outpatient (BNVA) | payer BC, SELFPAY | PROVIDERS: PCP Physician Assistant; Visit Provider Physician Assistant ==

== ENCOUNTER 2024-10-12 10:14 | Emergency (ER) | payer BC, SELFPAY ==
--- NOTE | ~2024-10-12 | CT_ITS ---
EXAMINATION: CT ABDOMEN AND PELVIS WITH CONTRAST CLINICAL INFORMATION: Incarcerated inguinal hernia. COMPARISON: None available. TECHNIQUE: Multidetector volumetric images were obtained from the superior aspect of the liver through the pubic symphysis following administration 85 mL of Omnipaque 350 intravenous contrast. Sagittal and coronal reformatted images were obtained on the technologist's workstation. Oral contrast: No This CT examination was performed using dose optimization techniques as appropriate, variously including the following: *Automated exposure control *Adjustment of mA and/or kV according to patient size (this includes techniques or standardized protocols for targeted exams where dose is matched to indication/reason for exam; i.e. extremities or head) *Use of iterative reconstruction technique DLP: 524 mGy-cm FINDINGS: LUNG BASES: The lung bases appear clear, with no evidence of inflammation or nodules. Heart normal in size. Partially imaged coronary arterial calcification. No pericardial effusion. LIVER, GALLBLADDER, AND BILIARY TREE: The liver appears unremarkable in size, shape, and attenuation. No focal hepatic lesion or biliary ductal dilatation is appreciated. Unremarkable appearance of the gallbladder. PANCREAS: Unremarkable SPLEEN: Unremarkable ADRENAL GLANDS: Unremarkable KIDNEYS AND URETERS: The kidneys appear unremarkable in size, shape, and attenuation. No hydronephrosis, hydroureter, or calculi seen. BLADDER: Unremarkable GASTROINTESTINAL TRACT: Stomach and small bowel appear unremarkable. Sigmoid diverticulosis without evidence of diverticulitis. Normal-appearing distal ileum. No evidence of appendicitis. ABDOMINAL WALL: A right inguinal hernia measures approximately 8 cm in length by 3.5 cm in diameter and contains only fat. LYMPH NODES: No evidence of adenopathy by size criteria. VASCULAR: Unremarkable PELVIC VISCERA: Enlarged prostate. OSSEOUS STRUCTURES: Unremarkable CT/CT abdomen pelvis w IV con IMPRESSION: No acute finding. A right inguinal hernia measures approximately 8 cm in length by 3.5 cm in diameter and contains only fat. Additional findings as above. Electronically signed by: Kenny Fontana MD 10/12/2024 02:27 PM [facility]
[2024-10-12 10:18] VITALS: BP 136/59; PULSE 57; RESP 18; TEMP 36.2; O2SAT 100; BMI 23.5
--- NOTE | 2024-10-12 10:24 | ED_ITS ---
HPI - General Adult General Chief complaint: General Medical Stated complaint: R Side Pain ? Herniated Intestine Time Seen by Provider: 10/12/24 10:24 Source: patient Mode of arrival: ambulatory Limitations: no limitations History of Present Illness ED Provider: Rodríguez HPI narrative: Patient is a 64-year-old male with history of T2DM, hypothyroidism, HLD, BONIFACIO presenting with complaint of sudden onset right inguinal pain and swelling since last night. Initially went to urgent care this am and was referred to the ED to rule out incarcerated hernia. Patient denies any pain or swelling to scrotum. Denies difficulty with urination. MD complaint: groin pain and swelling Onset (ago): hour(s) Quality: aching Associated symptoms: denies other symptoms Treatments prior to arrival: none Related Data Home Medications ?Medication ?Instructions ?Recorded ?Confirmed atorvastatin 10 mg tablet 10 mg PO BEDTIME 01/20/24 07/29/24 sertraline 100 mg tablet (Zoloft) 200 mg PO DAILY 01/20/24 07/29/24 Previous Rx's ?Medication ?Instructions ?Recorded blood sugar diagnostic (Accu-Chek #100 ea 07/30/24 Guide test strips) levothyroxine 75 mcg tablet 75 mcg PO DAILY 90 days #90 tabs 10/03/24 lisinopril 10 mg tablet 10 mg PO DAILY #90 tabs 10/08/24 metformin 500 mg tablet,extended 500 mg PO DAILY 90 days #90 tabs 10/12/24 release 24 hr Allergies Allergy/AdvReac Type Severity Reaction Status Date / Time sulfacetamide Allergy Hives Verified 10/12/24 10:18 Review of Systems 2 Review of Systems: As per HPI. 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 Cataracts, both eyes Chronic right shoulder pain Bilateral leg pain Anxiety Social History Social History Housing: House Patient Tobacco Use Status: Never used Tobacco Smoked in Last 30 Days: No e-Cigarette/Vaping Use: Former Use Use of substances other than those prescribed or required for medical reasons: No Advance Directives: No Advance Directives Information Provided: Yes Do you have a plan to hurt others: No Plan service: No Current occupational status: employed Current occupation: [employer], Right hand dominate Cognitive needs: No Hearing needs: Yes Vision needs: Yes Physical Exam ED Vital Signs: Vital Signs - 24 hr 10/12/24 10:18 10/12/24 10:42 10/12/24 11:06 Temperature 97.1 F 97.9 F Pulse Rate 57 51 Respiratory Rate 18 18 20 Blood Pressure 136/59 L 141/74 H Pulse Oximetry 100 100 Oxygen Delivery Method Room Air Room Air 10/12/24 14:00 Temperature 97.3 F Pulse Rate 50 Respiratory Rate 19 Blood Pressure 147/72 H Pulse Oximetry 100 Oxygen Delivery Method Room Air BMI result Body Mass Index 23.5 Vital signs have been reviewed and appear to be correct. Blood pressure normal. Heart rate normal. Respiratory rate normal. Temperature normal. Oxygen saturation normal. Const General: cooperative, healthy appearing and no acute distress Orientation/consciousness: oriented to person, oriented to place, oriented to time and patient oriented x3 Limitations: no limitations HENMT Head: Yes normocephalic and Yes atraumatic Ears: external ears normal General nose exam: Normal external nose present Face and sinus: Yes face symmetric Mouth: oropharynx normal and moist mucous membranes Throat: Yes uvula midline Eyes Pupils: Equal, round and reactive pupils present Neck Neck: Yes normal visual inspection and Yes supple Resp Effort & Inspection: normal respiratory effort and able to speak in complete sentences Auscultation: clear to auscultation bilaterally Cardio Rate: regular rate Rhythm: regular rhythm Heart sounds: S1 normal heart sound present and S2 normal heart sound present GI Palpation (GI): Soft to palpation and nontender Auscultation: normoactive bowel sounds Other: Exam chaperoned by CHARITY Garsia. General: Yes no CVA tenderness Male General Exam: Yes hernia (right) and Yes tenderness Scrotum: scrotum normal Back/Spine/Pelvis Back: no CVA tenderness Skin General skin exam: elasticity normal and turgor normal Neuro General: oriented to person, oriented to place, oriented to time, patient oriented x3, moves all extremities, no focal motor deficits and CN's II-XI intact bilaterally Cranial nerves: Yes Equal, round and reactive pupils present Cognition (Neuro): normal cognition Extrem General: Yes full ROM, Yes no pedal edema and Yes no calf tenderness Right lower extremity: foot Details: vascular exam Details: dorsalis pedis pulse present, posterior tibial pulse present and normal capillary refill Psych Mental Status: mental status grossly normal Affect: normal affect Thought process: Normal thought process present Medications Administered Discontinued Medications Generic Name Dose Route Start Last Admin Trade Name Deborah PRN Reason Stop Dose Admin Iohexol 100 ml 10/12/24 11:49 10/12/24 11:50 Iohexol 350 Mg/Ml 100 Ml Infus..Btl IV 10/12/24 11:50 85 ml ONCE ONE Administration Morphine Sulfate 4 mg 10/12/24 10:35 10/12/24 11:06 Morphine Sulfate 4 Mg/Ml Cartridge IVPUSH 10/12/24 10:36 4 mg ONCE ONE Administration Protocol Medical Decision Making Medical Decision Making [facility] Narrative: Patient is a 64-year-old male with history of T2DM, hypothyroidism, HLD, BONIFACIO presenting with complaint of sudden onset right inguinal pain and swelling since last night. On exam patient is awake, A+Ox3, VS WNL, afebrile, normal neurological exam without focal deficits, physical exam findings as above. Given reported symptoms and physical exam findings, initial differential includes inguinal hernia, incarcerated hernia, lymphadenopathy. Labs unremarkable. Urinalysis without evidence of infection. CT notable for right inguinal fat-containing hernia. My interpretation is in agreement with the radiologist's interpretation. Results discussed with patient and all questions answered. Will refer to General surgery for further evaluation and management. Return precautions discussed at bedside. Patient verbalized understanding of and agreement with plan. Differential Diagnosis Differential Diagnoses: The differential diagnosis associated with the presentation includes As per [facility] Admission/Observation Consideration of admission/observation: Escalation of care including admission/observation considered Patient would have been admitted to the hospital had their work up had any findings where hospital admission was appropriate and their clinical presentation warranted hospital admission. Lab Data [facility] Lab Attestation statement: I reviewed the patient's lab results. As per [facility] 10/12/24 10:27 10/12/24 10:27 Labs: Lab Results 11/25/24 11/25/24 11/25/24 Range/Units 10:27 13:30 14:34 WBC 6.0 (4.8-10.8) X10*3/uL RBC 4.75 (4.60-5.80) X10*6/uL Hgb 14.9 (14.0-18.0) g/dl Hct 42.3 (42.0-52.0) % MCV 89.1 (80.0-98.0) fL MCH 31.4 (27.0-33.0) pg MCHC 35.2 (31.0-36.0) g/dl RDW 12.3 (11.0-16.0) % Plt Count 181 (160-400) X10*3/uL MPV 9.8 (9.4-12.4) fL Immature Gran % (Auto) 0.2 (0.0-0.4) % Neut % (Auto) 56.6 (45-73) % Lymph % (Auto) 30.9 (20-40) % Sequoyah % (Auto) 8.0 (2-11) % Eos % (Auto) 4.0 (0-4) % Baso % (Auto) 0.3 (0-2) % Lymph # (Auto) 1.9 (1.2-4.9) X10*3/uL Sequoyah # (Auto) 0.5 (0.1-1.2) X10*3/uL Eos # (Auto) 0.2 (0.0-0.4) X10*3/uL Baso # (Auto) 0.0 (0.0-0.2) X10*3/uL Abs Immat Gran (auto) 0.01 (0.00-0.03) X10*3/uL Absolute Neuts (auto) 3.4 (2.0-8.3) x10*3/uL Absolute Nucleated RBC 0.000 (0.0-0.012) X10*3/uL Nucleated RBC % (auto) 0.0 (0.0-0.2) /100WBC Sodium 139 (135-145) mmol/L Potassium 4.3 (3.3-5.1) mmol/L Chloride 107 (96-108) mmol/L Carbon Dioxide 22 (22-29) mmol/L Anion Gap 14 (12-20) BUN 13 (9-16) mg/dL Creatinine 1.01 (0.5-1.4) mg/dL Estim Creat Clear Calc 81.1 Estimated GFR > 60 POC Glucose 92 (60-115) mg/dL Random Glucose 118 H (60-115) mg/dL Calcium 10.0 D (8.4-10.2) mg/dL Total Bilirubin 0.4 (0.0-1.0) mg/dL AST 45 H (5-37) U/L ALT 43 H (0-40) U/L Alkaline Phosphatase 74 (39-117) U/L Total Protein 6.9 (6.5-8.0) g/dL Albumin 4.4 (3.5-5.0) g/dL Urine Color Yellow Urine Appearance Clear Urine pH 6.5 (5.0-9.0) Ur Specific Cum[place] >= 1.030 H (1.005-1.025) Urine Protein Negative (Neg-Trace) mg/dL Urine Glucose (UA) Negative (Negative) mg/dL Urine Ketones Negative (Negative) mg/dL Urine Blood Negative (Negative) Urine Nitrite Negative (Negative) Ur Leukocyte Esterase Negative (Negative) Independent Interpretation I performed an independent interpretation of an: CT Scan Interpretation: Right inguinal fat containing hernia on CT Radiology Impression Discussion of test interpretation with radiology: I have reviewed the radiologist's reading. Radiologist Impression: CT/CT abdomen pelvis w IV con IMPRESSION: No acute finding. A right inguinal hernia measures approximately 8 cm in length by 3.5 cm in diameter and contains only fat. Additional findings as above. Electronically signed by: Kenny Fontana MD 10/12/2024 02:27 PM [facility] External Record Review External record reviewed: Inpatient record, Office record and Outpatient record Discharge Plan Discharge Clinical Impression: Hernia, inguinal, right Patient Disposition: Home, Self-Care Instructions: Inguinal Hernia (ED), Inguinal Hernia Repair (DC) Additional Instructions: You were evaluated in the emergency department today for groin pain. Your CT showed a right inguinal hernia which is NOT incarcerated (strangulated). Follow up with general surgery to discuss your options for repair. Return to the emergency department if you develop severe pain, difficulty urinating, fever, or any other concerning symptoms. Prescriptions: No Action (DME) Accu-Chek Guide test strips Strip See Rx Instructions .Route Qty: 100 1RF Rx Instructions: Test once a day as needed levothyroxine 75 mcg tablet 75 mcg PO DAILY 90 Days Qty: 90 1RF lisinopril 10 mg tablet 10 mg PO DAILY Qty: 90 1RF metformin 500 mg tablet extended release 24 hr 500 mg PO DAILY 90 Days Qty: 90 1RF sertraline [Zoloft] 100 mg tablet 200 mg PO DAILY atorvastatin 10 mg tablet 10 mg PO BEDTIME Referrals: [facility] [place] [facility] [Provider Group] Print Language: Argentine
[2024-10-12 10:42] VITALS: BP 141/74; PULSE 51; RESP 18; TEMP 36.6; O2SAT 100
[2024-10-12 10:42] LABS: MANUAL DIFF FLAG NO
[2024-10-12 10:44] LABS: Basophils Percent Auto 0.3 % (0-2); Eosinophils Absolute Auto 0.2 X10*3/uL (0.0-0.4); Hematocrit 42.3 % (42.0-52.0); Hemoglobin 14.9 g/dl (14.0-18.0); Imm Gran Abs Auto 0.01 X10*3/uL (0.00-0.03); Imm Gran Pct Auto 0.2 % (0.0-0.4); Lymphocytes Absolute Auto 1.9 X10*3/uL (1.2-4.9); Lymphocytes Percent Auto 30.9 % (20-40); Mean Corpuscular HGB Conc 35.2 g/dl (31.0-36.0); Mean Corpuscular Hemoglobin 31.4 pg (27.0-33.0); Mean Corpuscular Volume 89.1 fL (80.0-98.0); Mean Platelet Volume 9.8 fL (9.4-12.4); Monocytes Absolute Auto 0.5 X10*3/uL (0.1-1.2); Neutrophils Absolute Auto 3.4 x10*3/uL (2.0-8.3); Neutrophils Percent Auto 56.6 % (45-73); Platelet Count 181 X10*3/uL (160-400); Red Blood Count 4.75 X10*6/uL (4.60-5.80); Red Cell Distribution Width 12.3 % (11.0-16.0)
[2024-10-12 11:00] LABS: Alanine Aminotransferase 43 U/L (0-40); Albumin Level 4.4 g/dL (3.5-5.0); Alkaline Phosphatase 74 U/L (39-117); Anion Gap 14 (12-20); Aspartate Amino Transferase 45 U/L (5-37); Bilirubin Total 0.4 mg/dL (0.0-1.0); Blood Urea Nitrogen 13 mg/dL (9-16); Carbon Dioxide 22 mmol/L (22-29); Chloride 107 mmol/L (96-108); Creatinine Clr Calc Pharmacy 81.1; Estimated Glomerular Filt Rate > 60; Glucose Random 118 mg/dL (60-115); Potassium 4.3 mmol/L (3.3-5.1); Sodium 139 mmol/L (135-145); Total Protein 6.9 g/dL (6.5-8.0)
[2024-10-12 11:06] VITALS: RESP 20
[2024-10-12] MEDS: Morphine Sulfate 4 MG/ML CARTRIDGE IVPUSH (11:06)
[2024-10-12] MEDS: iohexoL 350 MG/ML 100 ML INFUS..BTL IV (11:50)
[2024-10-12 13:34] LABS: Glucose, Whole Blood 92 mg/dL (60-115)
[2024-10-12 14:00] VITALS: BP 147/72; PULSE 50; RESP 19; TEMP 36.3; O2SAT 100
[2024-10-12 14:45] LABS: Appearance Urine Clear; Color Urine Yellow; Glucose Urine UA Negative (Negative); Leukocyte Esterase Urine Negative (Negative); Nitrite Urine Negative (Negative); PH 6.5 (5.0-9.0); Specific Gravity - Urine >= 1.030 (1.005-1.025); Urine Blood Negative (Negative); Urine Ketones Negative (Negative); Urine Protein Negative (Neg-Trace)
[2024-10-12 16:04] VITALS: BP 140/70; PULSE 80; RESP 18; TEMP 36.3; O2SAT 100
== END 2024-10-12 16:05 | disposition home or self-care (01) ==
PROVIDERS: Emergency Provider Emergency Medicine; PCP Physician Assistant
DX: K40.90 Unilateral inguinal hernia, without obstruction or gangrene, not specified as recurrent (principal); R10.9 Unspecified abdominal pain; E11.9 Type 2 diabetes mellitus without complications
CPT/HCPCS: 36415; 74177; 80053; 81003; 82947; 85025; 96374; 99284; J2270; Q9967

== ENCOUNTER 2024-10-14 08:35 | Outpatient (AMB) | payer BC, SELFPAY ==
--- NOTE | 2024-10-14 08:45 | MHC.OFFVIS ---
Vital Signs 10/14/24 08:55 Height 6 ft Weight 172 lb BMI 23.3 BP 141/68 H Blood Pressure Location Rt brachial Position Sitting Pulse 49 L Intake Visit Reasons: Hernia, inguinal, right Intake Note: Patient referred after ER visit on 10-12-2024 for right inguinal hernia. Recently noticed about 1wk. Patient c/o: pain when walking, standing for long periods of time. Lump the size of a tennis ball on rt lower abd. ABD US: 10-12-2024. [employer]sembl[employer] Required: No Accompanied by: spouse Reta Allergies sulfacetamide Allergy (Verified 10/14/24 08:52) Hives HPI Comments Details: Patient presents with a symptomatic enlarging right inguinal hernia. He has had this several days time. He was seen emergency department and was referred here for the evaluation. Patient was occasional heavy lifting. He otherwise has regular bowel habits. No other GI issues or complaints. Chart was reviewed and patient evaluated [facility] Medical History (Updated 10/14/24 @ 08:54 by KATHY Orozco) H/O angiography History of left heart catheterization Acquired underactive thyroid Astigmatism Calculus of kidney in male Parathyroid hormone excess Unspecified essential hypertension Vitamin D deficiency Type 2 diabetes mellitus without obesity Slow heart rate History of varicose veins Right hip pain Elevated cholesterol with high triglycerides Gout Depression Chronic 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 Cataracts, both eyes Chronic right shoulder pain Bilateral leg pain Anxiety Social History Housing: House Patient Tobacco Use Status: Never used Tobacco e-Cigarette/Vaping Use: Former Use service: No Current occupational status: employed Current occupation: [employer], Right hand dominate Cognitive needs: No Hearing needs: Yes Vision needs: Yes Physical Exam Vital Signs: Last Vital Signs Pulse 49 L 10/14/24 08:55 BP 141/68 H 10/14/24 08:55 BMI result Body Mass Index 23.3 Chest Other: Chest breath sounds bilaterally, HS 1 in 2 GI Other: Patient was examined both supine and standing with Valsalva. Abdomen is soft benign. Left groin negative. Genitalia within normal limits. Moderately sized right inguinal hernia. Irreducible Assessment & Plan Assessment & Plan (1) S/P left rotator cuff repair: Code(s): Z98.890 - Other specified postprocedural states Plan: Risks, benefits, and alternatives of open right inguinal hernia repair with mesh reviewed with the patient and included but not limited to bleeding, infection, recurrence, numbness, pain, scarring the patient wished to proceed. All questions answered. Arrangements made for this. (2) Right inguinal hernia: Code(s): K40.90 - Unilateral inguinal hernia, without obstruction or gangrene, not specified as recurrent Category: Surgical Plan See above Coding Level of Care Code New Pt Level 5 (34314) Diagnoses S/P left rotator cuff repair Z98.890 Right inguinal hernia K40.90
[2024-10-14 08:55] VITALS: BP 141/68; PULSE 49; BMI 23.3
== END 2024-10-14 09:07 | disposition home or self-care (01) ==
PROVIDERS: PCP Physician Assistant; Visit Provider Surgery
DX: K40.90 Unilateral inguinal hernia, without obstruction or gangrene, not specified as recurrent (principal)
CPT/HCPCS: 99204

== ENCOUNTER 2024-10-29 07:32 | Day surgery (SDC) | payer BC, SELFPAY ==
[2024-10-27 07:45] VITALS: BMI 23.3
--- NOTE | 2024-10-28 09:34 | MHC.SHP ---
Pre-Procedural Eval Section A - 24 Hr Update-Section A only Date of Service: 10/29/24 The patient is an INPATIENT: No Changes since office visit: No Cold of Flu in the past 2 weeks, No New Medical Problems, No Changes in Medication and No Patient answered all questions Section B - Complete if H&P > 30 days Chief Complaint: Unilateral inguinal hernia, without obstruction or Allergies: Allergies Allergy/AdvReac Type Severity Reaction Status Date / Time sulfacetamide Allergy Hives Verified 10/14/24 08:52 Review of Systems Sugical H&P ROS: Negative: Constitution, Cardiovascular, Respiratory, Neurological, Psychiatric, Hem-Onc, Allergic/Immunologic, Gastrointestinal, Genitourinary, Musculoskeletal, Integumentary, Endocrine and Eyes/Ears/Nose/Throat Exam Surgical H&P Exam: Normal: HEENT, Normal: Heart, Normal: Lungs, Normal: Extremities, Normal: Abdomen, Normal: Skin and Normal: Neurological Plan I have reviewed the history and physical and performed a pertinent physical examination on my patient. No changes have occurred unless specified. Time Spent With Patient Time: Total time managing care of this patient today ____ minutes.
--- NOTE | 2024-10-28 10:03 | P.CONAN_ITS ---
Documented by User: Karey Fong NP 10/28/24 10:04 HPI - Anesthesia Eval Consult details Narrative: 64yo M for Right Hernia Inguinal Irreducible with mesh Medically optimized per PCP (pending cardiac referral d/t bradycardia and dizziness, but ok for procedure prior to cardiac eval) [facility] Active Problems Active Problems: All Active Problems (Updated 10/14/24 @ 08:54 by KATHY Orozco) Right inguinal hernia (Acute) Severe right inguinal pain (Acute) Slow heart rate (Acute) Cervical spine pain (Acute) BONIFACIO (generalized anxiety disorder) (Acute) Memory impairment (Acute) Low back pain (Acute) Neck pain (Acute) Impingement of right shoulder (Acute) HLD (hyperlipidemia) (Acute) Hypothyroid (Acute) Right shoulder pain (Acute) Lumbar spine pain (Acute) Depression (Acute) Type 2 diabetes mellitus without obesity (Acute) Past Medical History Medical History (Updated 10/14/24 @ 08:54 by KATHY Orozco) H/O angiography History of left heart catheterization Acquired underactive thyroid Astigmatism Calculus of kidney in male Parathyroid hormone excess Unspecified essential hypertension Vitamin D deficiency Type 2 diabetes mellitus without obesity Slow heart rate History of varicose veins Right hip pain Elevated cholesterol with high triglycerides Gout Depression Chronic 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 Cataracts, both eyes Chronic right shoulder pain Bilateral leg pain Anxiety Social History Social History Housing: House Are you a primary rn coronary care unit to a significant other at home: Yes Do you presently have visiting nurse or other home services: No Patient Tobacco Use Status: Never used Tobacco e-Cigarette/Vaping Use: Former Use Use of substances other than those prescribed or required for medical reasons: Yes Substance Use Type Other:: last smoked 10/28/24 Are you DNR?: Yes Advance Directives: No Advance Directives Information Provided: Yes service: No Current occupational status: employed Current occupation: [employer], Right hand dominate Cognitive needs: No Hearing needs: Yes Vision needs: Yes Meds Allergies Allergy/AdvReac Type Severity Reaction Status Date / Time sulfacetamide Allergy Hives Verified 10/14/24 08:52 Home Medications ?Medication ?Instructions ?Recorded ?Confirmed ?Last Taken ?Type atorvastatin 10 mg tablet 10 mg PO BEDTIME 01/20/24 10/29/24 Unknown History sertraline 100 mg tablet (Zoloft) 200 mg PO DAILY 01/20/24 10/29/24 Unknown History Exam Height,Weight and Vital Signs: Height 6 ft Weight 78.018 kg Pertinent Lab Results Pertinent Lab Results: Laboratory Tests 10/12/24 10:27 WBC 6.0 Hgb 14.9 Hct 42.3 Plt Count 181 Sodium 139 Potassium 4.3 Chloride 107 Carbon Dioxide 22 BUN 13 Creatinine 1.01 Narrative Narrative: EKG 08/2024 Vent. Rate : 058 BPM Atrial Rate : 058 BPM P-R Int : 148 ms QRS Dur : 084 ms QT Int : 420 ms P-R-T Axes : -19 058 047 degrees QTc Int : 412 ms Sinus bradycardia Otherwise normal ECG No previous ECGs available Assessment and Plan Assessment Anesthesia Assessment: Chart Reviewed Documented by User: Mireille David MD 10/29/24 11:22 [facility] Past Medical History Medical History (Updated 10/14/24 @ 08:54 by KATHY Orozco) H/O angiography History of left heart catheterization Acquired underactive thyroid Astigmatism Calculus of kidney in male Parathyroid hormone excess Unspecified essential hypertension Vitamin D deficiency Type 2 diabetes mellitus without obesity Slow heart rate History of varicose veins Right hip pain Elevated cholesterol with high triglycerides Gout Depression Chronic 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 Cataracts, both eyes Chronic right shoulder pain Bilateral leg pain Anxiety Family History Family history of problems with anesthesia: No Surgical History History of Problems with Anesthesia: No Social History Social History Housing: House Are you a primary rn coronary care unit to a significant other at home: Yes Do you presently have visiting nurse or other home services: No Patient Tobacco Use Status: Never used Tobacco e-Cigarette/Vaping Use: Former Use Use of substances other than those prescribed or required for medical reasons: Yes Substance Use Type Other:: last smoked 10/28/24 Are you DNR?: Yes Advance Directives: No Advance Directives Information Provided: Yes service: No Current occupational status: employed Current occupation: [employer], Right hand dominate Cognitive needs: No Hearing needs: Yes Vision needs: Yes Meds Allergies Allergy/AdvReac Type Severity Reaction Status Date / Time sulfacetamide Allergy Hives Verified 10/14/24 08:52 Home Medications ?Medication ?Instructions ?Recorded ?Confirmed ?Last Taken ?Type atorvastatin 10 mg tablet 10 mg PO BEDTIME 01/20/24 10/29/24 Unknown History sertraline 100 mg tablet (Zoloft) 200 mg PO DAILY 01/20/24 10/29/24 Unknown History Exam Airway Mallampati Class: II (caps laterally) TM Dist: >3cm Neck ROM: Full Heart: rrr Lungs: cta Assessment and Plan Assessment Anesthesia Assessment: Anesthesia Plan Discussed Final Anesthetic Review Family History of Problems with Anesthesia: No History of Problems with Anesthesia: No NPO: Yes ASA Class: II Final Preanesthetic Review: No Changes in Pt Med Stat, Meds/Allgs Chart Reviewed and Consent Obtained/Reviewed Patient Risk: Intermediate Procedure Risk: Low Anesthetic Plan Anesthetic Plan: MAC: Disposition: Standard PACU
[2024-10-29 08:04] VITALS: BMI 23.1
[2024-10-29 08:06] VITALS: BP 146/63; PULSE 38; RESP 16; TEMP 36.2; O2SAT 100
[2024-10-29] MEDS: Lactated Ringers 1,000 ML 100 ML IVCONT (08:34)
[2024-10-29 08:39] LABS: Glucose, Whole Blood 101 mg/dL (60-115)
--- NOTE | 2024-10-29 12:07 | P.OP_ITS ---
Operative Note Operative Note Date of Service: 10/29/24 Narrative: Preoperative diagnosis: [] Symptomatic right inguinal hernia Postop diagnosis: [] The same Procedure [] open right inguinal herniorrhaphy with Bard mesh Surgeon: [] Kalin Gas Combustion Engineer: [] Marcus Type of Anesthesia: [] MAC Indication for surgery: [] Very large indirect right inguinal hernia. Small direct right inguinal hernia. Findings: [] Patient brought to the operating room, placed on operative table i n supine position, after an adequate level of MAC anesthesia was induced, the right groin was prepped and draped in usual sterile fashion using a small right para inguinal incision, this carried down through skin, subcutaneous tissue, Amanda's fascia. External oblique fibers were opened their direction with care to isolate and preserve the ilioinguinal nerve throughout the procedure. Spermatic cord was identified and retracted from the field. Exploration of the cord demonstrated very large indirect hernia sac which was reduced. A small direct hernia was also reduced. A large Bard plug was placed in the indirect defect and this was sutured inferiorly to the inguinal ligament, and superiorly to the transversalis fascia using interrupted 0 Ethibond suture. Mesh also covered the inguinal floor. At completion of the procedure, mesh was in good position with no gaps or tension. Wound was irrigated, secured hemostasis, and closed in the following manner; external oblique fascia was closed using running 2-0 Vicryl suture. Amanda's fascia was reapproximated using interrupted 3-0 Vicryl suture. Interrupted inverted deep dermal 3-0 Vicryl sutures followed by running subcuticular 4-0 Vicryl sutures were placed. Steri-Strips and sterile dressings were applied. Wound was infiltrated at the beginning at the end of the case with 0.5% Marcaine/1% lidocaine. Sponge, needle, and instrument counts were reported correct. Patient tolerated the procedure well and emerged from anesthesia stable condition. EBL minimal. Ipsilateral testicle was intrascrotal at completion.
[2024-10-29 12:09] VITALS: BP 144/72; PULSE 64; RESP 16; TEMP 36.2; O2SAT 97
[2024-10-29 12:24] VITALS: BP 131/70; PULSE 57; RESP 16; O2SAT 100
[2024-10-29 12:39] VITALS: BP 153/72; PULSE 42; RESP 20; TEMP 36.4; O2SAT 100
== END 2024-10-29 13:35 | disposition home or self-care (01) ==
PROVIDERS: PCP Physician Assistant; Visit Provider Surgery
PROC: (CPT 49505; principal; 2024-10-29 10:10)
DX: K40.90 Unilateral inguinal hernia, without obstruction or gangrene, not specified as recurrent (principal); I10 Essential (primary) hypertension; E55.9 Vitamin D deficiency, unspecified; E78.2 Mixed hyperlipidemia; R00.1 Bradycardia, unspecified; E11.9 Type 2 diabetes mellitus without complications; M10.9 Gout, unspecified; F32.A Depression, unspecified; F41.1 Generalized anxiety disorder; Z87.442 Personal history of urinary calculi; Z79.84 Long term (current) use of oral hypoglycemic drugs; Z79.899 Other long term (current) drug therapy; Z88.2 Allergy status to sulfonamides; Z98.890 Other specified postprocedural states; Z66 Do not resuscitate
CPT/HCPCS: 49505; 82947; C1781; J0690; J2003; J2250; J2795; J3010

== ENCOUNTER → 2024-10-29 07:32 | Outpatient (BNV) | payer BC, SELFPAY | PROVIDERS: PCP Physician Assistant; Visit Provider Surgery | DX: K40.90 Unilateral inguinal hernia, without obstruction or gangrene, not specified as recurrent (principal) | CPT/HCPCS: 49505 ==

== ENCOUNTER 2024-11-09 10:31 | Outpatient (AMB) | payer BC, SELFPAY ==
--- NOTE | 2024-11-09 10:36 | A.OFFVIS_ITS ---
Intake Visit Reasons: S/P RIH w/mesh Intake Note: Patient here s/p RIH w/mesh. Reports site healing well. 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 Aside from incisional discomfort which is improving he is otherwise doing well. He is tolerating a diet. Having regular bowel habits. He is increasing his activity level. [facility] Medical History (Updated 10/14/24 @ 08:54 by KATHY Orozco) H/O angiography History of left heart catheterization Acquired underactive thyroid Astigmatism Calculus of kidney in male Parathyroid hormone excess Unspecified essential hypertension Vitamin D deficiency Type 2 diabetes mellitus without obesity Slow heart rate History of varicose veins Right hip pain Elevated cholesterol with high triglycerides Gout Depression Chronic 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 Cataracts, both eyes Chronic right shoulder pain Bilateral leg pain Anxiety Surgical History Right inguinal hernia Social History Housing: House Are you a primary child care development specialist to a significant other at home: Yes Do you presently have visiting nurse or other home services: No Patient Tobacco Use Status: Never used Tobacco e-Cigarette/Vaping Use: Former Use service: No Current occupational status: employed Current occupation: [employer], Right hand dominate Cognitive needs: No Hearing needs: Yes Vision needs: Yes Physical Exam GI Other: Abdomen is soft. Incision clean dry and intact healing very well Assessment & Plan Assessment & Plan (1) Status post inguinal hernia repair: Code(s): Z98.890 - Other specified postprocedural states; Z87.19 - Personal history of other diseases of the digestive system Category: Medical Plan Patient was been given local instructions including avoiding strenuous activities next few weeks time and will otherwise follow-up p.r.n.. All que stions answered. Coding Level of Care Code Global (25551) Diagnoses Status post inguinal hernia repair Z98.890; Z87.19
== END 2024-11-09 10:53 | disposition home or self-care (01) ==
PROVIDERS: PCP Physician Assistant; Visit Provider Surgery
DX: Z98.890 Other specified postprocedural states (principal); Z87.19 Personal history of other diseases of the digestive system
CPT/HCPCS: 99024

== ENCOUNTER 2025-01-05 13:30 | Outpatient (AMB) | payer BC, SELFPAY ==
--- NOTE | 2025-01-05 13:31 | AM.OFFWIN_ITS ---
Intake Vital Signs 01/05/25 13:34 Weight 187 lb BP 124/70 Blood Pressure Location Lt brachial Position Sitting Pulse 64 Pulse Source Pulse Oximeter Pulse Oximetry (%) 99 Oxygen Delivery Method Room Air Intake Visit Reasons: EP-rt hand 4th finger cut Intake Note: Patient here for cut on 4th finger of right hand and the tip of the finger on sheet metal. Patient Tobacco Use Status: Never used Tobacco Allergies sulfacetamide Allergy (Verified 01/05/25 13:35) Hives Do you need a note to return to daycare/school/sports/work: No HPI HPI Comments History of Present Illness Details History of Present Illness - The patient is a 64-year-old male pres enting with a laceration on the right fourth finger. - Sustained the injury the previous even ing around 8:00 PM on sheet metal while replacing a furnace filter. - Significant bleeding occurred, managed initially at home with pressure using sterile gauze. - Renewed bleeding was noted when the ad hered bandage was removed using water. - The patient?s last Tdap vaccination wa s in 2010, making him due for another considering the nature of the injury. - No injury to the nail bed or vascular compromise was observed. - Denies being on a blood thinner Physical Exam General: Cooperative, healthy appearing, comfortable, no acute distress and well developed Orientation: Patient oriented x3 Limitations: No limitations Head: Normal to inspection Ears: Hearing grossly normal bilaterally Nose: Normal external nose present Face and sinus: Normal facial exam Eyes: Appearance normal, both eyes and all related structures Neck: Normal visual inspection and Yes full ROM Respiratory: Normal respiratory effort and able to speak in complete sentences. Skin: No rashes or lesions noted Neuro: Patient oriented x3 Extremities: Normal to inspection, full range of motion in the right hand, neurovascularly intact, tip of 4th digit on right hand is missing, bleeding has stopped, no signs of infection noted. [facility] Medical History (Updated 01/05/25 @ 13:53 by Emmanuelle Mendez PA-C) H/O angiography History of left heart catheterization Acquired underactive thyroid Astigmatism Calculus of kidney in male Parathyroid hormone excess Unspecified essential hypertension Vitamin D deficiency Type 2 diabetes mellitus without obesity Slow heart rate History of varicose veins Right hip pain Elevated cholesterol with high triglycerides Gout Depression Chronic 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 Cataracts, both eyes Chronic right shoulder pain Bilateral leg pain Anxiety Surgical History Right inguinal hernia Social History Housing: House Are you a primary resident care manager to a significant other at home: Yes Do you presently have visiting nurse or other home services: No Patient Tobacco Use Status: Never used Tobacco e-Cigarette/Vaping Use: Former Use service: No Current occupational status: employed Current occupation: [employer] department [employer], Right hand dominate Cognitive needs: No Hearing needs: Yes Vision needs: Yes Review of Systems Const All systems reviewed & are unremarkable except as noted in HPI and below Physical Exam Vital Signs: Last Vital Signs Pulse 64 01/05/25 13:34 BP 124/70 01/05/25 13:34 Pulse Ox 99 01/05/25 13:34 Oxygen Delivery Method Room Air 01/05/25 13:34 Immunizations Boostrix Tdap 2.5 Lf unit-8 mcg-5 Lf/0.5 mL intramuscular syringe Performing Provider: Emmanuelle Mendez PA-C Performing Location: [facility] Administered by: ARELY Cheung on 01/05/25 14:01 Dose Route Admin Location Dispensed Lot Number Expiration Date NDC [employer] Consultant 0.5 mL IM Right Deltoid 0.5 mL [id number] 02/03/27 08991-240-72 [employer] VIS Given Date VIS Provided VIS Publication Date 01/05/25 Single Vaccine 21 Eligibility Eligibility Date Funding Source Not [facility] Eligible 01/05/25 Private Assessment & Plan Assessment & Plan (1) Laceration of finger: Code(s): S61.219A - Laceration without foreign body of unspecified finger without damage to nail, initial encounter Qualifiers: Damage to nail status: without damage Encounter type: initial encounter Finger: ring finger Foreign body presence: without foreign body Laterality: right Qualified Code(s): S61.214A - Laceration without foreign body of right ring finger without damage to nail, initial encounter Plan: The laceration on the right fourth finger will be managed conservatively without sutures due to its location; wound care will involve bacitracin and gauze to ensure it remains clean and dry. The patient is due for a Tdap vaccine, which will be administered owing to the injury's metal-associated risk. The wound shou ld remain covered, especially when in public, to avoid infection, and it will be uncovered at home when resting. Signs of infection such as redness, pain, or fever warrant reevaluation. Patient was informed and verbally consented to the use of an ambient scribe for clinic note documentation during this visit. Orders: Orders TDaP Immunization Today S61.219A - Laceration without foreign body of unspecified finger without damage to nail, initial encounter Coding Level of Care Code Est Pt Level 3 (36986) Diagnoses Laceration of right ring finger without foreign body without damage to nail, initial encounter S61.214A Damage to nail status: without damage Encounter type: initial encounter Finger: ring finger Foreign body presence: without foreign body Laterality: right
[2025-01-05 13:34] VITALS: BP 124/70; PULSE 64; O2SAT 99
== END 2025-01-05 14:09 | disposition home or self-care (01) ==
PROVIDERS: PCP Physician Assistant; Visit Provider Physician Assistant
DX: S61.214A Laceration without foreign body of right ring finger without damage to nail, initial encounter (principal)

== ENCOUNTER → 2025-01-05 13:30 | Outpatient (BNVA) | payer BC, SELFPAY | PROVIDERS: PCP Physician Assistant | DX: S61.214A Laceration without foreign body of right ring finger without damage to nail, initial encounter (principal); Z23 Encounter for immunization; W26.8XXA Contact with other sharp object(s), not elsewhere classified, initial encounter; Y93.89 Activity, other specified; Y92.9 Unspecified place or not applicable; Y99.9 Unspecified external cause status | CPT/HCPCS: 90471; 90715 ==

== ENCOUNTER 2025-03-01 08:55 | Outpatient (AMB) | payer BC, SELFPAY ==
--- NOTE | 2025-03-01 09:09 | A.OFFVIS_ITS ---
Vital Signs 03/01/25 09:16 Weight 181 lb 3.52 oz BP 160/72 H Blood Pressure Location Rt brachial Position Sitting Pulse 45 L Intake Visit Reasons: surgical site pain Intake Note: Patient scheduled today's appointment c/o pain at surgical site. HX: Right inguinal herniorrhaphy with Bard mesh on 10-29-2024 Patient c/o: constant Rt groin pain that never went away after surgery. Pain spreads to rt lower back, rt hip. Of note: pulse w/low reading. Patient states has not been able to address the pulse due to pain issues. Safe Expert Required: No Accompanied by: carlie Mcduffie Allergies sulfacetamide Allergy (Verified 03/01/25 09:18) Hives HPI Comments Details: Patient presents here for surgical wound evaluation. Patient has had a significant level of back issues and is concerned that this may be related to his hernia surgery. In the meantime, he is tolerating a diet. Having regular bowel habits. 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 Chart was reviewed and patient evaluated. He is known to me from hernia surgery this past October. Patient apparently has insurance issues and at present can not afford to be seen by a back surgeon/neurosurgeon/neurologist. [facility] Medical History (Updated 01/05/25 @ 13:53 by Emmanuelle Mendez PA-C) H/O angiography History of left heart catheterization Acquired underactive thyroid Astigmatism Calculus of kidney in male Parathyroid hormone excess Unspecified essential hypertension Vitamin D deficiency Type 2 diabetes mellitus without obesity Slow heart rate History of varicose veins Right hip pain Elevated cholesterol with high triglycerides Gout Depression Chronic 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 Cataracts, both eyes Chronic right shoulder pain Bilateral leg pain Anxiety Surgical History Right inguinal hernia Social History Housing: House Are you a primary care transition mgr to a significant other at home: Yes Do you presently have visiting nurse or other home services: No Patient Tobacco Use Status: Never used Tobacco e-Cigarette/Vaping Use: Former Use service: No Current occupational status: employed Current occupation: [employer] department [employer], Right hand dominate Cognitive needs: No Hearing needs: Yes Vision needs: Yes Physical Exam Vital Signs: Last Vital Signs Pulse 45 L 03/01/25 09:16 BP 160/72 H 03/01/25 09:16 GI Other: Patient was examined both supine and standing with Valsalva. Abdomen is soft benign. Left groin negative. Right groin incision well healed. No evidence of any recurrence. No evidence of any infection. Mild tenderness to palpation. Assessment & Plan Assessment & Plan (1) Inguinodynia, right: Code(s): R10.31 - Right lower quadrant pain Category: Surgical Plan At present, patient was reassured that doing a strenuous activities he has not caused any issues regarding the hernia. His symptoms seem more related regarding his back then his groin. However as noted above he can not at present afford to be seen by any physician regarding this. I recommend that he pursue this once his insurance issues have been resolved. From my perspective he is doing okay and will otherwise follow-up p.r.n.. All questions answered Coding Level of Care Code Est Pt Level 4 (39192) Diagnoses Inguinodynia, right R10.31
[2025-03-01 09:16] VITALS: BP 160/72; PULSE 45
== END 2025-03-01 09:29 | disposition home or self-care (01) ==
LOC: HO.HGS 08:56
PROVIDERS: PCP Physician Assistant; Visit Provider Surgery
DX: R10.31 Right lower quadrant pain (principal)
CPT/HCPCS: 99214

== ENCOUNTER → 2025-03-01 08:55 | Outpatient (BNVA) | payer BC, SELFPAY | PROVIDERS: PCP Physician Assistant; Visit Provider Surgery ==

== ENCOUNTER 2025-03-13 10:04 | Outpatient (AMB) | payer BC, SELFPAY ==
[2025-03-13 10:32] VITALS: BP 124/74; PULSE 61; RESP 17; TEMP 36.7; O2SAT 99; BMI 24.3
--- NOTE | 2025-03-13 10:32 | MHC.OFFWIV ---
Intake Vital Signs 03/13/25 10:32 Height 6 ft Weight 179 lb BMI 24.3 BP 124/74 Blood Pressure Location Lt brachial Position Sitting Respiration 17 Pulse 61 Pulse Source Pulse Oximeter Temp 98.1 F Temp Source Oral Pulse Oximetry (%) 99 Intake Visit Reasons: EP-Cough, SOB, sinus Intake Note: Pt is here today c/o cough, SOB and sinus congestion x1week Patient Tobacco Use Status: Never used Tobacco Allergies sulfacetamide Allergy (Verified 03/13/25 10:33) Hives Medication List - Last Reconciled 03/13/25 by Gee Gamboa MD atorvastatin 10 mg PO BEDTIME 90 days blood sugar diagnostic (Accu-Chek Guide test strips) Test once a day as needed levothyroxine 75 mcg PO DAILY 90 days lisinopril 10 mg PO DAILY metformin ER 500 mg PO DAILY 90 days sertraline (Zoloft) 200 mg PO DAILY HPI EP-Cough, SOB, sinus HPI Details Screening for the past several days. No fevers or chills. Very productive cough. [facility] Medical History (Updated 03/13/25 @ 11:47 by Gee Gamboa MD) H/O angiography History of left heart catheterization Acquired underactive thyroid Astigmatism Calculus of kidney in male Parathyroid hormone excess Unspecified essential hypertension Vitamin D deficiency Type 2 diabetes mellitus without obesity Slow heart rate History of varicose veins Right hip pain Elevated cholesterol with high triglycerides Gout Depression Chronic 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 Cataracts, both eyes Chronic right shoulder pain Bilateral leg pain Anxiety Surgical History Right inguinal hernia Social History Housing: House Are you a primary care coordination manager to a significant other at home: Yes Do you presently have visiting nurse or other home services: No Patient Tobacco Use Status: Never used Tobacco e-Cigarette/Vaping Use: Former Use service: No Current occupational status: employed Current occupation: [employer], Right hand dominate Cognitive needs: No Hearing needs: Yes Vision needs: Yes Review of Systems Const Denies chills, Denies fatigue, Denies fever(s), Denies headache(s) and Denies weakness ENT Details: Nasal congestion Denies dizziness and Denies headache(s) Card Denies chest pain, Denies lightheadedness, Reports dyspnea and Denies other (Palpitations) Resp Reports cough, Reports dyspnea, Denies wheezing and Denies other ( shortness of breath) Musc Denies numbness and Denies tingling Neuro Denies dizziness, Denies headache(s), Denies numbness, Denies tingling, Denies paresthesias and Denies weakness Psych Denies anxiety and Denies depression Endo Denies fatigue Aller/Immun Denies wheezing Physical Exam Vital Signs: Last Vital Signs Temp 98.1 F 03/13/25 10:32 Pulse 61 03/13/25 10:32 Resp 17 03/13/25 10:32 BP 124/74 03/13/25 10:32 Pulse Ox 99 03/13/25 10:32 BMI result Body Mass Index 24.3 Const Other: Appears mildly ill General: no acute distress and well developed Nutritional Appearance: well nourished Orientation/consciousness: patient oriented x3 HEENT Head: Yes normocephalic and Yes atraumatic Eyes General: appearance normal, both eyes and all related structures Pupils: Equal, round and reactive pupils present EOM: EOMs intact bilaterally Resp Other: Coarse breath sounds with upper airway secretions sounds. No decreased breath sounds No wheezing Effort & Inspection: normal respiratory effort Cardio Rate: regular rate Rhythm: regular rhythm Heart sounds: S1 normal heart sound present, S2 normal heart sound present, no gallops, no murmurs and no rubs Neuro General: patient oriented x3 and gait normal Cranial nerves: Yes Equal, round and reactive pupils present Psych Affect: normal affect Assessment & Plan Assessment & Plan (1) Bronchitis: Code(s): J40 - Bronchitis, not specified as acute or chronic Plan: Likely bronchitis with possible underlying viral illness. Possible bacterial overgrowth bronchitis Will give him a script for a Z-Elias and some prednisone. Hydrate well and get plenty of rest Good hand hygiene Can not rule out COVID/flu/RSV. Nasal swab sent to the lab Orders: Orders SARS-CoV2/FLU/RSV Today R05.9 - Cough, unspecified, Z20.822 - Contact with and (suspected) exposure to COVID-19 Medications: New azithromycin (Zithromax Z-Elias) take 500 mg today (day 1), then 250 mg for 4 days (days 2-5) PO 5 days 6 tabs 0RF prednisone 40 mg (2 x 20 mg) PO DAILY 5 days 10 tabs 0RF Coding Level of Care Code Est Pt Level 3 (83599) Diagnoses Bronchitis J40
== END 2025-03-13 11:48 | disposition home or self-care (01) ==
LOC: HO.HMCWIC 10:04
PROVIDERS: PCP Physician Assistant; Visit Provider Family Medicine
DX: J40 Bronchitis, not specified as acute or chronic (principal)

== ENCOUNTER 2025-03-13 10:04 | Outpatient (REF) | payer BC, SELFPAY ==
[2025-03-13 14:54] LABS: Influenza A PCR NEGATIVE (Negative); Influenza B PCR NEGATIVE (Negative); Resp Syncy Virus RNA Qual PCR NEGATIVE (Negative); SARS COV2 PCR INHOUSE NEGATIVE (Negative)
== END 2025-03-13 10:05 | disposition home or self-care (01) ==
LOC: HO.LAB 10:04
PROVIDERS: PCP Physician Assistant; Visit Provider Family Medicine
DX: J40 Bronchitis, not specified as acute or chronic (principal); Z20.822 Contact with and (suspected) exposure to COVID-19; R05.8 Other specified cough
CPT/HCPCS: 0241U

== ENCOUNTER 2025-03-22 14:59 | Outpatient (AMB) | payer BC, SELFPAY ==
[2025-03-22 15:03] VITALS: BP 124/70; PULSE 75; O2SAT 98; BMI 24.5
--- NOTE | 2025-03-22 15:03 | A.OFFPC_ITS ---
Vital Signs 03/22/25 15:03 Height 6 ft Weight 181 lb BMI 24.5 BP 124/70 Blood Pressure Location Lt brachial Position Sitting Pulse 75 Pulse Source Pulse Oximeter Pulse Oximetry (%) 98 Oxygen Delivery Method Room Air Intake Visit Reasons: MAREN Sim Allergies sulfacetamide Allergy (Verified 03/22/25 15:07) Hives Medication List - Last Reconciled 03/22/25 by Rodriguez Gray MD atorvastatin 10 mg PO BEDTIME 90 days blood sugar diagnostic (Accu-Chek Guide test strips) Test once a day as needed levothyroxine 75 mcg PO DAILY 90 days lisinopril 10 mg PO DAILY metformin ER 500 mg PO DAILY 90 days sertraline (Zoloft) 200 mg PO DAILY Tobacco use date assessed: 03/22/25 Fall risk assessment: No Falls in past year Last assessed Fall Risk: 03/22/25 Dental Screening Dental Screen Date: 03/22/25 Did you have a dental visit in the last 12 months?: No Did you have a dental problem in the last 6 months where you did not have access to dental care?: No Was dental information given to patient?: No HPI MAREN Sim HPI Details Patient is concerned about memory issues , [facility] PFSH Medical History (Updated 03/22/25 @ 15:52 by Rodriguez Gray MD) Lumbar spine pain Laceration of finger Low back pain Neck pain Slow heart rate Nephrolithiasis Depression Right shoulder pain Bronchitis Cough H/O angiography History of left heart catheterization Acquired underactive thyroid Astigmatism Calculus of kidney in male Parathyroid hormone excess Unspecified essential hypertension Vitamin D deficiency Type 2 diabetes mellitus without obesity History of varicose veins Right hip pain Elevated cholesterol with high triglycerides Gout Chronic 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 Cataracts, both eyes Chronic right shoulder pain Bilateral leg pain Anxiety Surgical History (Updated 03/22/25 @ 15:38 by Rodriguez Gray MD) Status post ablation of incompetent vein using laser History of cataract surgery Inguinodynia, right Status post inguinal hernia repair H/O parathyroidectomy Right inguinal hernia Social History (Updated 03/22/25 @ 15:39 by Rodriguez Gray MD) Housing: House Are you a primary pharmacy customer care specialist to a significant other at home: Yes Do you presently have visiting nurse or other home services: No Alcohol intake: current Comment: 1-2 beers a month Patient Tobacco Use Status: Never used Tobacco Tobacco use type: Cigarette Years Smoked: marijuana 2023 e-Cigarette/Vaping Use: Former Use Second Hand Smoke Exposure: No service: No Current occupational status: employed Current occupation: [employer], Right hand dominate Cognitive needs: No Hearing needs: Yes Vision needs: Yes Questionnaire PHQ-9 Over the last 2 weeks, how often have you been bothered by any of the following problems? 1. Little interest or pleasure in doing things: more than half the days 2. Feeling down, depressed, or hopeless: more than half the days 3. Trouble falling or staying asleep, or sleeping too much: more than half the days 4. Feeling tired or having little energy: more than half the days 5. Poor appetite or overeating: more than half the days 6. Feeling bad about yourself - or that you are a failure or have let yourself or your family down: more than half the days 7. Trouble concentrating on things, such as reading the newspaper or watching television: more than half the days 8. Moving or speaking so slowly that other people could have noticed. Or the opposite - being so fidgety or restless that you have been moving around a lot more than usual: more than half the days 9. Thoughts that you would be better off or of hurting yourself in some way: not at all Total score: 16 Depression Screening Interpretation: Positive Depression Screening Done: Yes Source: Developed by Drs. Bladimir Terrell, Radha Mascorro, Ravin Tadeo and colleagues, with an educational andre from [employer]. Thrive Questionnaire Date Thrive assessed: 03/20/25 I am a: Patient What is your living situation today?: I have a steady place to live Within the past 12 months, did the food you bought not last and you didn't have the money to get more?: I choose not to answer this question Within the past 12 months, did you worry whether your food would run out before you got money to buy more?: I choose not to answer this question Do you have trouble paying for medicines?: I choose not to answer this question Do you have trouble getting transportation to medical appointments?: Yes Do you have trouble paying your heating and electricity bill?: I choose not to answer this question Do you have trouble taking care of your child, family member or friend?: I choose not to answer this question Do you have trouble with day-to-day activities such as bathing, preparing meals, shopping, managing finances, etc.?: I choose not to answer this question Are you currently unemployed and looking for a job?: I choose not to answer this question Are you interested in more education?: No Please select the resources that you would like help with: Transportation Currently or been in a relationship where the following occur: I choose not to answer THRIVE Score: 1 AUDIT C Alcohol Use Questionnaire (AUDIT-C) 1. How often do you have a drink containing alcohol?: Monthly or less 2. How many drinks containing alcohol do you have on a typical day when you are drinking?: 1 or 2 3. How often do you have six or more drinks on one occasion?: Never Total Score: 1 BONIFACIO-7 AMB Questionnaire BONIFACIO-7 Date BONIFACIO - 7 assessed: 03/22/25 Feeling nervous, anxious, or on edge: 2 = More than half the days Not being able to stop or control worryin = More than half the days Worrying too much about different things: 2 = More than half the days Trouble relaxin = Nearly every day Being so restless that it is hard to sit still: 3 = Nearly every day Becoming easily annoyed or irritable: 2 = More than half the days Feeling afraid as if something awful might happen: 2 = More than half the days Total BONIFACIO-7 score (0-4 normal; 5-9 mild; 10-14 moderate; 15-21 severe): 16 Source: Developed by Drs. Bladimir Terrell, Radha Mascorro, Ravin Tadeo and colleagues, with an educational andre from [employer]. Physical exam (Primary Care) Vital Signs: Last Vital Signs Pulse 75 03/22/25 15:03 BP 124/70 03/22/25 15:03 Pulse Ox 98 03/22/25 15:03 Oxygen Delivery Method Room Air 03/22/25 15:03 BMI result Body Mass Index 24.5 Tobacco/Smoking Status: Tobacco use Status Tobacco use date assessed 03/22/25 03/22/25 15:09 Patient Tobacco Use Status Never used Tobacco 03/22/25 15:39 Tobacco use type Cigarette 03/22/25 15:39 e-Cigarette/Vaping Use Former Use 03/22/25 15:39 PHQ-9: PHQ-9 Score PHQ-9: Total score 16 03/22/25 15:38 Depression Screening Interpretation: Positive Thrive Assessment: Date of Thrive Assessment Date Thrive assessed 03/20/25 03/22/25 15:05 Currently or been in a relationship where the following occur: I choose not to answer Const General: alert; No acute distress Eyes Conjunctivae: conjunctivae normal Resp Auscultation: clear to auscultation bilaterally Cardio Rate: regular rate Rhythm: regular rhythm GI Inspection: Yes normal to inspection Extrem General: Yes normal to inspection and No edema Results AMB Hemoglobin A1c AMB Hemoglobin A1c 5.8 % Last Edit by Rona Velazquez CMA on 03/22/25 15 :39 Results Reviewed Results Reviewed: Laboratory Last Values Hgb A1c (Clinic) 5.8 % (4.0-6.0) 03/22/25 15:09 Coding Level of Care Code New Pt Level 4 (40948) Diagnoses Type 2 diabetes mellitus without obesity E11.9 Hypothyroidism, unspecified type E03.9 Hypothyroidism type: unspecified Mixed hyperlipidemia E78.2 Hyperlipidemia type: mixed hyperlipidemia BONIFACIO (generalized anxiety disorder) F41.1 LFT elevation R79.89 Assessment & Plan Assessment & Plan (1) Type 2 diabetes mellitus without obesity: Comment: Dr. Madrid-not anymore (Insurance) Code(s): E11.9 - Type 2 diabetes mellitus without complications Category: Medical Plan: Decrease the amount of carbohydrate intake, pasta, bread, rice and potatoes are all sugar and that is aside from all the sweet stuff, remember that fruits are good but they are Sweet also. Patient on metformin 500 mg once a day. Hemoglobin A1c goal of less than 6.5. (2) Hypothyroid: Code(s): E03.9 - Hypothyroidism, unspecified Category: Medical Qualifiers: Hypothyroidism type: unspecified Qualified Code(s): E03.9 - Hypothyroidism, unspecified Plan: Continue with thyroid medication (3) HLD (hyperlipidemia): Code(s): E78.5 - Hyperlipidemia, unspecified Category: Medical Qualifiers: Hyperlipidemia type: mixed hyperlipidemia Qualified Code(s): E78.2 - Mixed hyperlipidemia Plan: Avoid fried foods, chicken skin, eggs, butter margarine, pastries and meat. Be it pork or beef they have a lot of cholesterol LDL goal of less than 100 and triglyceride of less than 150 patient on atorvastatin 10 mg at bedtime (4) BONIFACIO (generalized anxiety disorder): Comment: Dr. Jhaveri Code(s): F41.1 - Generalized anxiety disorder Category: Medical Plan: Continue with present medication (5) LFT elevation: Code(s): R79.89 - Other specified abnormal findings of blood chemistry Category: Medical Plan History of Present Illness The patient is a 65-year-old male presenting for health maintenance and chronic condition management, including diabetes mellitus, hypothyroidism, hypercholesterolemia, and generalized anxiety disorder. Diabetes was diagnosed approximately three to four years ago and is currently well-controlled with an A1c of 5.8%. He manages his condition with metformin and sees occasional updates to his treatment goals and lab values, such as cholesterol and liver function tests. He has seen previous healthcare providers for his ocular complications related to cataracts and has undergone hernia repair. Ongoing concerns regarding elevated liver enzymes have prompted evaluations for fatty liver, agreed upon with imaging studies. The patient is dealing with considerable stress from family dynamics that have adversely affected his mental health, contributing to reports of memory loss and discontinuation of certain health management behaviors, such as regular blood glucose monitoring. Health Maintenance - Diabetic eye exam completed January 2024 with no acute findings. - Hemoglobin A1c was recorded as 5.8, indicating controlled diabetes. - Recent cholesterol levels showed LDL at 85 mg/dL as of June. - Completed MRI of the brain in October 2024 did not show acute abnormalities. - LFTs in September were elevated, addressed with further work-up suggested. 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 - Housing: Lives with spouse; has experienced family taxing situation recently improved by family moving out. - Education: Not explicitly discussed. - Family Status: with daughter and grandchild who temporarily resided with them. - Substance Use: Reports rare alcohol use, denies tobacco, and no current recreational drug use. - Exercise: Walks daily for a mile when possible. - Nutrition: No specific dietary details provided, but discussions of healthy eating encouraged. Review of Systems - Endocrine: Reports diabetes and hypothyroidism. - Psychiatric: Reports history of depression and anxiety. - Cardiovascular: Denies heart problems. - Respiratory: Denies lung issues such as asthma or COPD. - Gastrointestinal: Denies known ulcers. - Neurological: Reports memory issues but denies seizures. - Musculoskeletal: Reports history of shoulder impingement. - Dermatological: Denies skin issues apart from sulfa allergy. - Social: Significant life stressors identified. Physical Exam General: Cooperative, healthy appearing, comfortable, no acute distress and well developed Orientation: Patient oriented x3 Limitations: No limitations Head: Normal to inspection Ears: Hearing grossly normal bilaterally Nose: Normal external nose present Face and sinus: Normal facial exam Eyes: Appearance normal, both eyes and all related structures Neck: Normal visual inspection and Yes full ROM Respiratory: Normal respiratory effort and able to speak in complete sentences. Clear to auscultation bilaterally Cardiovascular: Regular rate and rhythm. Normal S1 and S2 GI: Normal to inspection. Soft to palpation and nontender Skin: No rashes or lesions noted Neuro: Patient oriented x3 Extremities: Normal to inspection Results - Labs: Elevated liver function tests (ALT 45, AST 43). - Tests: MRI showing nonspecific white matter changes. - Cholesterol panel showing LDL 85 mg/dL. Plan The patient's diabetes management will involve continued monitoring and diet control, as well as the continued use of metformin due to the currently well- controlled hemoglobin A1c. Hypothyroidism and hypercholesterolemia management will continue through current medications at existing dosages. The generalized anxiety disorder remains under treatment with sertraline, and recommendations for stress relief measures were discussed. The elevated liver function findings will lead to further evaluation through liver ultrasound and hepatitis profile once the patient's insurance situation permits. The history of ocular concerns will be followed up when possible. Recommendations emphasize lifestyle modification and regular follow-ups to maintain health and address recent mental health strains linked to past familial stressors. Patient was informed and verbally consented to the use of an ambient scribe for clinic note documentation during this visit. Discussion Notes I reviewed the patient's current management of diabetes, hypothyroidism, and hypercholesterolemia, highlighting the importance of regular monitoring and medication adherence. I further discussed options to address elevated liver enzymes with the potential for an ultrasound and hepatitis screening. Recommendations were provided for stress management and mental health, navigating current treatment for his anxiety disorder with sertraline 200 mg daily. I conveyed the need for lifestyle changes where possible, emphasizing support post-family stress. The patient agreed to reengage with monitoring practices where feasible, and future ophthalmology follow-up was recommended post-insurance activation. We reviewed risks and benefits of current interventions, emphasizing the need to manage modifiable lifestyle factors such as diet, exercise, and alcohol intake. Additionally, patient consent and understanding were ascertained regarding procedural follow-ups and the need for behavioral health actions. Patient Instructions - Continue all current medications as prescribed. - Schedule a hepatic ultrasound and hepatitis screening after insurance update. - Maintain regular blood glucose monitoring. - Discuss any further eye issues with a [employer] consultant post-insurance transition. - Work on stress management techniques and consider professional support if needed. - Monitor and adjust lifestyle habits around diet and exercise for health benefits. - Follow-up for routine monitoring and address any new health concerns promptly. - Seek immediate medical advice if you experience any acute or concerning symptoms. Orders: Orders AMB Hemoglobin A1c Today Z13.9 - Encounter for screening, unspecified Hepatitis B,C Profile Today R79.89 - Other specified abnormal findings of blood chemistry Lipid Panel Today E78.00 - Pure hypercholesterolemia, unspecified, R79.89 - Other specified abnormal findings of blood chemistry US abdomen complete Today R79.89 - Other specified abnormal findings of blood chemistry Medications: Refilled metformin ER 500 mg PO DAILY 90 days 90 tabs 1RF E11.9 - Type 2 diabetes mellitus without complications metformin ER 500 mg PO DAILY 90 tabs 1RF 90 days E11.9 - Type 2 diabetes mellitus without complications blood sugar diagnostic (Accu-Chek Guide test strips) Test once a day as needed 100 ea 1RF E11.9 - Type 2 diabetes mellitus without complications
== END 2025-03-22 16:40 | disposition home or self-care (01) ==
LOC: HO.HMCH 15:00
PROVIDERS: PCP Physician Assistant; Visit Provider Internal Medicine
DX: E11.9 Type 2 diabetes mellitus without complications (principal); E03.9 Hypothyroidism, unspecified; E78.2 Mixed hyperlipidemia; F41.1 Generalized anxiety disorder; R79.89 Other specified abnormal findings of blood chemistry; Z13.9 Encounter for screening, unspecified

== ENCOUNTER → 2025-03-22 14:59 | Outpatient (BNVA) | payer BC, SELFPAY | PROVIDERS: PCP Physician Assistant; Visit Provider Internal Medicine | DX: E11.9 Type 2 diabetes mellitus without complications (principal); E03.9 Hypothyroidism, unspecified; E78.2 Mixed hyperlipidemia; F41.1 Generalized anxiety disorder; R79.89 Other specified abnormal findings of blood chemistry; Z79.84 Long term (current) use of oral hypoglycemic drugs; Z79.899 Other long term (current) drug therapy | CPT/HCPCS: 83036; 96127 ==

== ENCOUNTER 2025-05-05 14:02 | Outpatient (AMB) | payer MEDICARE, SELFPAY ==
[2025-05-05 14:04] VITALS: BP 152/74; PULSE 55; TEMP 36.2; O2SAT 100; BMI 23.7
--- NOTE | 2025-05-05 14:04 | A.OFFPC_ITS ---
Vital Signs 05/05/25 14:04 Height 6 ft Weight 175 lb BMI 23.7 BP 152/74 H Blood Pressure Location Lt brachial Position Sitting Pulse 55 Pulse Source Pulse Oximeter Temp 97.1 F Temp Source Temporal Artery Scan Pulse Oximetry (%) 100 Oxygen Delivery Method Room Air Intake Visit Reasons: Health issue Strategic Sourcing Specialist Required: No Accompanied by: Self / Same As Patient Allergies sulfacetamide Allergy (Verified 05/05/25 14:18) Hives Medication List - Last Reconciled 05/05/25 by Ernesto Sim PA-C atorvastatin 10 mg PO BEDTIME 90 days blood sugar diagnostic (Accu-Chek Guide test strips) Test once a day as needed ferrous sulfate ER 142 mg PO DAILY hydroxyzine HCl 25 mg PO TID levothyroxine 75 mcg PO DAILY 90 days lisinopril 10 mg PO DAILY metformin ER 500 mg PO DAILY 90 days sertraline (Zoloft) 200 mg PO DAILY Tobacco use date assessed: 03/22/25 Dental Screening Dental Screen Date: 03/22/25 HPI Health issue HPI Details The patient is a 65-year-old male presenting with cervical and lumbar spine pain, tinnitus, and management of type 2 diabetes mellitus and hypertension. Left lower lid Entropion: The patient reports having both eyes operated on with new lenses inserted, which initially worked well, but he developed entropion in one eye causing redness and swelling by the end of the day. He has been advised to use lubricating eye drops and has tried taping the eyelid, but the condition persists, affecting his vision and causing discomfort. Cervical and lumbar spine disease: The patient experiences chronic cervical and lumbar spine pain, which has been ongoing for over a year, with pain radiating down his right leg and causing difficulty in sleeping and walking. He has tried care worker and special pillows without relief and has not been able to afford physical therapy or advanced imaging like MRI. Sensorineural hearing loss and tinnitus: The patient reports tinnitus, which is constant and affects his ability to hear, especially in noisy environments. He uses [id number] hearing aids but finds them inadequate. Type 2 diabetes: The patient has a history of type 2 diabetes mellitus, managed with metformin, and his last HbA1c was 5.8%. He struggles with maintaining regular blood sugar monitoring due to insurance limitations. Hypertension: The patient has hypertension, currently managed with lisinopril, and his blood pressure was recorded at 152/74 mmHg during the visit. .. Hyperlipidemia: Continues on atorvastatin 10 mg with good effect on his lipid panel. Will continue to follow lipid panel with goal LDL to be below 100 .. Hypothyroidism: Continues on levothyroxine 75 mcg and he reports TSH has been stable. .. MDD: Does see a Supervisor Tank Storage (Dr Jhaveri) whom he does not believe is helping him. Again we discussed his doses of mental health medication may be a bit too high. Also continues on fairly high dose of Zoloft as well at 200 mg. [facility] Medical History (Updated 05/05/25 @ 14:36 by Ernesto Sim PA-C) Lumbar spine pain Laceration of finger Low back pain Neck pain Slow heart rate Nephrolithiasis Depression Right shoulder pain Bronchitis Cough H/O angiography History of left heart catheterization Acquired underactive thyroid Astigmatism Calculus of kidney in male Parathyroid hormone excess Unspecified essential hypertension Vitamin D deficiency Type 2 diabetes mellitus without obesity History of varicose veins Right hip pain Elevated cholesterol with high triglycerides Gout Chronic 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 Cataracts, both eyes Chronic right shoulder pain Bilateral leg pain Anxiety Surgical History Status post ablation of incompetent vein using laser History of cataract surgery Inguinodynia, right Status post inguinal hernia repair H/O parathyroidectomy Right inguinal hernia Social History Housing: House Are you a primary director career services to a significant other at home: Yes Do you presently have visiting nurse or other home services: No Alcohol intake: current Comment: 1-2 beers a month Patient Tobacco Use Status: Never used Tobacco Tobacco use type: Cigarette Years Smoked: marijuana 2023 e-Cigarette/Vaping Use: Former Use Second Hand Smoke Exposure: No service: No Current occupational status: employed Current occupation: [employer], Right hand dominate Cognitive needs: No Hearing needs: Yes Vision needs: Yes Questionnaire Thrive Questionnaire Date Thrive assessed: 03/20/25 I am a: Patient What is your living situation today?: I have a steady place to live Within the past 12 months, did the food you bought not last and you didn't have the money to get more?: I choose not to answer this question Within the past 12 months, did you worry whether your food would run out before you got money to buy more?: I choose not to answer this question Do you have trouble paying for medicines?: I choose not to answer this question Do you have trouble getting transportation to medical appointments?: Yes Do you have trouble paying your heating and electricity bill?: I choose not to answer this question Do you have trouble taking care of your child, family member or friend?: I choose not to answer this question Do you have trouble with day-to-day activities such as bathing, preparing meals, shopping, managing finances, etc.?: I choose not to answer this question Are you currently unemployed and looking for a job?: I choose not to answer this question Are you interested in more education?: No Please select the resources that you would like help with: Transportation Currently or been in a relationship where the following occur: I choose not to answer THRIVE Score: 1 BONIFACIO-7 AMB Questionnaire BONIFACIO-7 Date BONIFACIO - 7 assessed: 03/22/25 Source: Developed by Drs. Bladimir Terrell, Radha Mascorro, Ravin Tadeo and colleagues, with an educational andre from [employer]. Review of Systems Const Denies headache(s) Eyes Denies loss of vision ENT Denies vertigo, Denies dizziness, Denies headache(s), Reports neck pain and Denies sore throat Card Denies chest pain, Denies leg edema and Denies lightheadedness Resp Denies cough, Denies hemoptysis and Denies wheezing GI Denies abdominal pain, Denies melena, Denies constipation, Denies diarrhea and Denies vomiting Denies dysuria, Denies urinary frequency and Denies urinary urgency Musc Reports back pain, Denies arthralgias, Denies joint swelling, Reports neck pain, Denies numbness and Denies tingling Neuro Denies Abnormal speech present, Denies behavioral changes, Denies vertigo, Denies dizziness, Denies headache(s), Denies loss of vision, Denies memory loss, Denies numbness and Denies tingling Psych Denies anxiety, Denies behavioral changes, Denies depression, Denies memory loss and Denies panic attacks Branden/Lymph Denies easy bleeding and Denies easy bruising Aller/Immun Denies wheezing Physical exam (Primary Care) Vital Signs: Last Vital Signs Temp 97.1 F 05/05/25 14:04 Pulse 55 05/05/25 14:04 BP 152/74 H 05/05/25 14:04 Pulse Ox 100 05/05/25 14:04 Oxygen Delivery Method Room Air 05/05/25 14:04 BMI result Body Mass Index 23.7 Tobacco/Smoking Status: Tobacco use Status Tobacco use date assessed 03/22/25 05/05/25 14:07 Patient Tobacco Use Status Never used Tobacco 05/05/25 14:07 Tobacco use type Cigarette 05/05/25 14:07 e-Cigarette/Vaping Use Former Use 05/05/25 14:07 Thrive Assessment: Date of Thrive Assessment Date Thrive assessed 03/20/25 05/05/25 14:07 Currently or been in a relationship where the following occur: I choose not to answer Const General: healthy appearing, no acute distress, alert and awake Nutritional Appearance: well nourished Orientation/consciousness: oriented to person, oriented to place and oriented to time HENMT Ears: TM's normal bilaterally General nose exam: Normal nasal mucous membranes and turbinates present Eyes Conjunctivae: conjunctivae normal Sclerae: sclerae normal Pupils: Equal, round and reactive pupils present Neck Neck: Yes no lymphadenopathy and Yes no JVD Thyroid: Thyroid normal Carotids: no bruits Resp Effort & Inspection: normal respiratory effort and not tachypneic Auscultation: no crackles, no rales, no rhonchi and no wheezes Cardio Rate: regular rate Rhythm: regular rhythm Heart sounds: no murmurs and normal S1 and S2 GI Palpation (GI): Soft to palpation, nontender, no hepatomegaly and no splenomegaly Auscultation: normal bowel sounds Skin General skin exam: no rashes or lesions noted and dry skin Neuro General: oriented to person, oriented to place and oriented to time Cranial nerves: Yes Equal, round and reactive pupils present Speech: No Abnormal speech present Gait exam (Neuro): Normal gait present Motor exam (neuro): no tremor noted Extrem Right upper extremity: full ROM Left upper extremity: full ROM Right lower extremity: full ROM; no edema Left lower extremity: full ROM; no edema Psych Mental Status: mental status grossly normal Speech and movement: Normal speech and movement present Affect: normal affect Attitude: cooperative Thought process: Normal thought process present Coding Level of Care Code Est Pt Level 4 (55411) Diagnoses Spinal stenosis of lumbar region with radiculopathy M48.061; M54.16 Type 2 diabetes mellitus without obesity E11.9 Hypothyroidism, unspecified type E03.9 Hypothyroidism type: unspecified Mixed hyperlipidemia E78.2 Hyperlipidemia type: mixed hyperlipidemia Tinnitus of both ears H93.13 Cervical spine disease M48.9 Assessment & Plan Assessment & Plan (1) Spinal stenosis of lumbar region with radiculopathy: Code(s): M48.061 - Spinal stenosis, lumbar region without neurogenic claudication; M54.16 - Radiculopathy, lumbar region Category: Medical Plan: Physical therapy has been recommended to alleviate symptoms and improve mobility. A muscle relaxer will be prescribed for nighttime use to aid in pain management and improve sleep quality. Referral to pain management for potential injections or other interventions is planned. (2) Type 2 diabetes mellitus without obesity: Comment: Dr. Madrid-not anymore (Insurance) Code(s): E11.9 - Type 2 diabetes mellitus without complications Category: Medical Plan: Patient's type 2 diabetes is well controlled.. Most recent A1c of 5.8, Decrease the amount of carbohydrate intake, pasta, bread, rice and potatoes are all sugar and that is aside from all the sweet stuff, remember that fruits are good but they are Sweet also. Patient on metformin 500 mg once a day. Hemoglobin A1c goal of less than 6.5. (3) Hypothyroid: Code(s): E03.9 - Hypothyroidism, unspecified Category: Medical Qualifiers: Hypothyroidism type: unspecified Qualified Code(s): E03.9 - Hypothyroidism, unspecified Plan: Continue with thyroid medication, most recent TSH stable. (4) HLD (hyperlipidemia): Code(s): E78.5 - Hyperlipidemia, unspecified Category: Medical Qualifiers: Hyperlipidemia type: mixed hyperlipidemia Qualified Code(s): E78.2 - Mixed hyperlipidemia Plan: Avoid fried foods, chicken skin, eggs, butter margarine, pastries and meat. Be it pork or beef they have a lot of cholesterol LDL goal of less than 100 and triglyceride of less than 150 patient on atorvastatin 10 mg at bedtime (5) Tinnitus of both ears: Code(s): H93.13 - Tinnitus, bilateral Category: Medical Plan: A hearing exam will be conducted to assess the extent of hearing loss and determine appropriate interventions. (6) Cervical spine disease: Code(s): M48.9 - Spondylopathy, unspecified Category: Medical Plan: As above will try to set patient up with pain management for his chronic neck and lower back pain to offer a pain reduction modality. For now will try a muscle relaxer at night to help reduce his pain. Orders: Orders PT Evaluation and Treatment 05/05/25 M48.061 - Spinal stenosis, lumbar region without neurogenic claudication, M54.16 - Radiculopathy, lumbar region IRON PROFILE 05/05/25 D50.9 - Iron deficiency anemia, unspecified, E11.9 - Type 2 diabetes mellitus without complications XR lumbar spine 2-3V 05/05/25 M48.061 - Spinal stenosis, lumbar region without neurogenic claudication, M54.16 - Radiculopathy, lumbar region XR cervical spine 4V 05/05/25 M48.9 - Spondylopathy, unspecified Lipid Panel 05/05/25 E78.2 - Mixed hyperlipidemia TSH reflex Free T4 05/05/25 E03.9 - Hypothyroidism, unspecified Comprehensive [place]. Panel Fast 05/05/25 E11.9 - Type 2 diabetes mellitus without complications Complete Blood Count no Diff 05/05/25 E11.9 - Type 2 diabetes mellitus without complications Referrals Speech and Hearing Referral H93.13 - Tinnitus, bilateral Pain Management Referral M48.061 - Spinal stenosis, lumbar region without neurogenic claudication, M54.16 - Radiculopathy, lumbar region Medications: New baclofen 10 mg PO BEDTIME 30 tabs 0RF 30 days M48.061 - Spinal stenosis, lumbar region without neurogenic claudication, M54.16 - Radiculopathy, lumbar region
== END 2025-05-05 14:57 | disposition home or self-care (01) ==
PROVIDERS: PCP Physician Assistant; Visit Provider Physician Assistant
DX: M48.061 Spinal stenosis, lumbar region without neurogenic claudication (principal); M54.16 Radiculopathy, lumbar region; E11.9 Type 2 diabetes mellitus without complications; E03.9 Hypothyroidism, unspecified; E78.2 Mixed hyperlipidemia; H93.13 Tinnitus, bilateral; M48.9 Spondylopathy, unspecified

== ENCOUNTER → 2025-05-05 14:02 | Outpatient (BNVA) | payer MEDICARE, SELFPAY | PROVIDERS: PCP Physician Assistant; Visit Provider Physician Assistant | DX: M48.061 Spinal stenosis, lumbar region without neurogenic claudication (principal); M54.16 Radiculopathy, lumbar region; E11.9 Type 2 diabetes mellitus without complications; E03.9 Hypothyroidism, unspecified; E78.5 Hyperlipidemia, unspecified; H93.13 Tinnitus, bilateral; M48.9 Spondylopathy, unspecified | CPT/HCPCS: 99212 ==

== ENCOUNTER 2025-05-27 11:40 | Outpatient (REF) | payer MEDICARE, SELFPAY ==
--- NOTE | ~2025-05-27 | XR_ITS ---
CLINICAL HISTORY: M48.061 - Spinal stenosis, lumbar region without neurogenic claudication 3 views lumbar spine Comparison: None provided Findings: Normal alignment. No acute fractures or dislocation. There is multiple level degenerative facet change. IMPRESSION: No acute findings. This document has been electronically signed by: Wilman Puga MD on 05/28/2025 08:58:09
--- NOTE | ~2025-05-27 | XR_ITS ---
CLINICAL HISTORY: M48.9 - Spondylopathy, unspecified 4 views cervical spine Comparison: None provided Findings: Normal alignment. No acute fractures or dislocation. There is multiple level degenerative disc change. Neural foramina are patent. No prevertebral soft tissue swelling. IMPRESSION: No acute findings. This document has been electronically signed by: Wilman Puga MD on 05/28/2025 08:57:55
[2025-05-27 14:36] LABS: Hematocrit 43.5 % (42.0-52.0); Hemoglobin 15.3 g/dl (14.0-18.0); Mean Corpuscular HGB Conc 35.2 g/dl (31.0-36.0); Mean Corpuscular Hemoglobin 31.3 pg (27.0-33.0); Mean Corpuscular Volume 89.0 fL (80.0-98.0); NRBC Abs Auto 0.000 X10*3/uL (0.0-0.012); NRBC Pct Auto 0.0 /100WBC (0.0-0.2); Platelet Count 201 X10*3/uL (160-400); Red Blood Count 4.89 X10*6/uL (4.60-5.80); White Blood Count 7.7 X10*3/uL (4.8-10.8)
[2025-05-27 14:54] LABS: Alanine Aminotransferase 29 U/L (0-40); Albumin Level 4.6 g/dL (3.5-5.0); Alkaline Phosphatase 51 U/L (39-117); Anion Gap 11 (12-20); Aspartate Amino Transferase 36 U/L (5-37); Blood Urea Nitrogen 17 mg/dL (9-16); Calcium 9.9 mg/dL (8.4-10.2); Carbon Dioxide 25 mmol/L (22-29); Chloride 106 mmol/L (96-108); Cholesterol 192 mg/dL (<200); Estimated Glomerular Filt Rate > 60; HDL Cholesterol 45 mg/dL (>40); Iron 157 mcg/dL (45-160); Percent Iron Saturation 46 % (15-50); Potassium 4.3 mmol/L (3.3-5.1); Sodium 138 mmol/L (135-145); Total Iron Binding Capacity 342 mcg/dL (228-428); Total Protein 7.0 g/dL (6.5-8.0); Triglycerides 203 mg/dL (<150); Unsaturated Iron Binding 185 ug/dL
== END 2025-05-27 11:41 | disposition home or self-care (01) ==
LOC: HO.HMGCX 11:40
PROVIDERS: PCP Physician Assistant; Visit Provider Physician Assistant
DX: M48.061 Spinal stenosis, lumbar region without neurogenic claudication (principal); M54.16 Radiculopathy, lumbar region; M48.9 Spondylopathy, unspecified; D50.9 Iron deficiency anemia, unspecified; E11.9 Type 2 diabetes mellitus without complications; E03.9 Hypothyroidism, unspecified; E78.2 Mixed hyperlipidemia
CPT/HCPCS: 36415; 72050; 72100; 80053; 80061; 83540; 84443; 85027

== ENCOUNTER → 2025-05-27 11:45 | Outpatient (BNV) | payer MEDICARE, SELFPAY | PROVIDERS: PCP Physician Assistant; Visit Provider Specialist | DX: M48.8X2 Other specified spondylopathies, cervical region (principal); M48.061 Spinal stenosis, lumbar region without neurogenic claudication | CPT/HCPCS: 72050; 72100 ==

== ENCOUNTER 2025-05-28 12:59 | Outpatient (AMB) | payer MEDICARE, SELFPAY ==
--- NOTE | 2025-05-28 13:01 | A.OFFVIS_ITS ---
Vital Signs 05/28/25 13:02 Height 6 ft Weight 182 lb BMI 24.7 BP 136/66 Blood Pressure Location Lt brachial Position Sitting Respiration 16 Pulse 64 Pulse Source Pulse Oximeter Pulse Oximetry (%) 100 Oxygen Delivery Method Room Air Intake Visit Reasons: Radiculopathy, lumbar region Automotive Worker Foreman Required: No Accompanied by: Life Partner Allergies sulfacetamide Allergy (Verified 05/28/25 13:02) Hives HPI Comments Details: The patient is a 65-year-old male presenting with chronic neck and back pain. The neck pain is described as a constant ache with stiffness, limiting the range of motion and causing significant discomfort, especially at night, leading to sleep disturbances. The pain has been persistent since the onset of the COVID-19 pandemic. Denies radiation of the pain down either arm. The lumbar pain is associated with referred pain down the right leg to the knee, and is described as a deep ache. The patient reports a history of a hernia operation and an ablation procedure for pain management, which provided temporary relief. The patient has a history of anxiety and depression, which have been present since childhood and are managed with psychiatric care. The patient has tried various pain management strategies, including physical therapy, neonatal intensive care nurse, and medical marijuana, with varying degrees of success. - Onset: Pain has been present since the onset of the COVID-19 pandemic. - Quality: Constant ache with stiffness in the neck, deep ache in the lumbar region. - Location: Neck and lumbar region, with radiation down the leg to the knee. - Exacerbating factors: Movement, especially rotation and lateral flexion of the neck. - Relieving factors: Use of a special pillow, sleeping on the left side. - Impact: Significant sleep disturbances, limiting daily activities. - Affect: Pain impacts sleep and daily activities, contributing to anxiety and depression. - Analgesia: Uses medical marijuana, ibuprofen, and Aleve with limited relief. - Adverse Effects: Concerns about gastrointestinal effects from NSAIDs. - Activities of Daily Living: Pain limits sleep and physical activities, affecting quality of life. - Aberrant Drug Related Behaviors: No evidence of medication misuse reported. [facility] Medical History (Updated 05/28/25 @ 14:41 by Gricel Higgins, HAND TOUCH UP PAINTER, TRAVELING SALES EXECUTIVE) Lumbar spine pain Laceration of finger Low back pain Neck pain Slow heart rate Nephrolithiasis Depression Right shoulder pain Bronchitis Cough H/O angiography History of left heart catheterization Acquired underactive thyroid Astigmatism Calculus of kidney in male Parathyroid hormone excess Unspecified essential hypertension Vitamin D deficiency Type 2 diabetes mellitus without obesity History of varicose veins Right hip pain Elevated cholesterol with high triglycerides Gout Chronic 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 Cataracts, both eyes Chronic right shoulder pain Bilateral leg pain Anxiety Surgical History Status post ablation of incompetent vein using laser History of cataract surgery Inguinodynia, right Status post inguinal hernia repair H/O parathyroidectomy Right inguinal hernia Social History Housing: House Are you a primary acute care assistant to a significant other at home: Yes Do you presently have visiting nurse or other home services: No Alcohol intake: current Comment: 1-2 beers a month Patient Tobacco Use Status: Never used Tobacco Tobacco use type: Cigarette Years Smoked: marijuana 2023 e-Cigarette/Vaping Use: Former Use Second Hand Smoke Exposure: No service: No Current occupational status: employed Current occupation: [employer], Right hand dominate Cognitive needs: No Hearing needs: Yes Vision needs: Yes Review of Systems Const Details: - Musculoskeletal: Reports constant neck pain with stiffness, lumbar pain. - Neurological: Denies tenderness in the neck, reports limited range of motion. - Psychiatric: Reports anxiety and depression since childhood. - Sleep: Reports significant sleep disturbances due to pain. Physical Exam Vital Signs: Last Vital Signs Pulse 64 05/28/25 13:02 Resp 16 05/28/25 13:02 BP 136/66 05/28/25 13:02 Pulse Ox 100 05/28/25 13:02 Oxygen Delivery Method Room Air 05/28/25 13:02 BMI result Body Mass Index 24.7 General: awake, alert, oriented. Answers questions appropriately. Fully engaged in examination. Skin: warm, dry, intact HEENT: Normocephalic. Hearing intact. Cardiac: External chest normal in appearance. Respiratory: No cough, audible wheezing or stridor. Abdomen: without gross distension. MS: No obvious swelling or deformities. Able to stand on bilateral tiptoes and bilateral heels.? Able to transition from sit to stand unassisted. Ambulates with bilaterally normal heel strike and toe off SLR negative bilaterally Minimally tender over midline lumbar vertebrae and lumbar paraspinal muscles Minimally tender over midline cervical vertebrae and cervical paraspinal muscles Significantly decreased cervical range of motion Cervical lumbar facet loading positive Neurological: Oriented to person, place, time and situation. Thought process intact. No gait abnormalities appreciated. Psychiatric: Appropriate mood and affect. Good judgment and insight. Results Reviewed Results Reviewed: 05/28/25 x-ray lumbar spine Comparison: None provided Findings: Normal alignment. No acute fractures or dislocation. There is multiple level degenerative facet change. IMPRESSION: No acute findings. 05/28/25 x-ray cervical spine Findings: Normal alignment. No acute fractures or dislocation. There is multiple level degenerative disc change. Neural foramina are patent. No prevertebral soft tissue swelling. IMPRESSION: No acute findings. Assessment & Plan Assessment & Plan (1) Chronic neck pain: Code(s): M54.2 - Cervicalgia; G89.29 - Other chronic pain Category: Medical (2) Chronic back pain: Code(s): M54.9 - Dorsalgia, unspecified; G89.29 - Other chronic pain Category: Medical (3) Cervical spondylosis: Code(s): M47.812 - Spondylosis without myelopathy or radiculopathy, cervical region Category: Medical (4) Lumbar spondylosis: Code(s): M47.816 - Spondylosis without myelopathy or radiculopathy, lumbar region Category: Medical Plan The plan includes initiating physical therapy for the neck to assess its effectiveness in alleviating symptoms before considering further interventions. If physical therapy does not provide sufficient relief, diagnostic injections under fluoroscopic guidance will be performed to determine the source of pain and assess the potential benefit of treating arthritis in the back. If no improvement with physical therapy will plan for bilateral diagnostic C3-C4 C5 medial branch blocks with local anesthetic. Following diagnostic injections, options include steroid injections or a temporary nerve stimulator for longer- term relief. Radiofrequency ablation is another option if other treatments do not provide adequate relief. Continue with Tylenol and ibuprofen as needed. Continue with muscle relaxers as prescribed. Patient was informed and verbally consented to the use of an ambient scribe for clinic note documentation during this visit. Patient Instructions: - Start physical therapy for your neck and monitor its effects. - Keep a pain diary to document your symptoms and any changes. - Follow up in two weeks to discuss the progress and next steps. - Contact the clinic if physical therapy exacerbates your symptoms. Coding Level of Care Code New Pt Level 4 (29469) Complex EM visit Add On G2211 Diagnoses Chronic neck pain M54.2; G89.29 Chronic back pain M54.9; G89.29 Cervical spondylosis M47.812 Lumbar spondylosis M47.816
[2025-05-28 13:02] VITALS: BP 136/66; PULSE 64; RESP 16; O2SAT 100; BMI 24.7
== END 2025-05-28 14:01 | disposition home or self-care (01) ==
LOC: HO.PMC 12:59
PROVIDERS: PCP Physician Assistant; Referring Provider Physician Assistant; Visit Provider Registered Nurse Emergency
DX: M54.2 Cervicalgia (principal); G89.29 Other chronic pain; M54.9 Dorsalgia, unspecified; M47.812 Spondylosis without myelopathy or radiculopathy, cervical region; M47.816 Spondylosis without myelopathy or radiculopathy, lumbar region
CPT/HCPCS: 99204; G2211

== ENCOUNTER → 2025-05-28 12:59 | Outpatient (BNVA) | payer MEDICARE, SELFPAY | PROVIDERS: PCP Physician Assistant; Referring Provider Physician Assistant; Visit Provider Registered Nurse Emergency | DX: M54.2 Cervicalgia (principal); M54.9 Dorsalgia, unspecified; M47.812 Spondylosis without myelopathy or radiculopathy, cervical region; M47.816 Spondylosis without myelopathy or radiculopathy, lumbar region | CPT/HCPCS: 99202 ==

== ENCOUNTER 2025-06-15 11:06 | Outpatient (REF) | payer MEDICARE, SELFPAY | END 2025-06-15 11:07 | disposition home or self-care (01) | LOC: HO.SH 11:06 | PROVIDERS: Visit Provider Physician Assistant | DX: Z01.118 Encounter for examination of ears and hearing with other abnormal findings (principal); H90.3 Sensorineural hearing loss, bilateral; H93.13 Tinnitus, bilateral | CPT/HCPCS: 92557; 92567 ==

== ENCOUNTER 2025-06-22 10:03 | Outpatient (REF) | payer MEDICARE, SELFPAY ==
--- NOTE | ~2025-06-22 | US_ITS ---
EXAMINATION: US ABDOMEN HISTORY: R79.89 - Other specified abnormal findings of blood chemistry TECHNIQUE: Real-time grayscale ultrasound imaging of the abdomen was performed and images were reviewed. COMPARISON: Correlation is made with a CT of the abdomen with contrast dated 10/12/2024. FINDINGS: Liver: The right lobe of the liver measures 12.5 cm in size. The left lobe of the liver measures 10.4 cm in size. The liver demonstrates normal homogeneous echotexture. No focal mass or intrahepatic biliary ductal dilatation is identified. There is normal hepatopedal flow in the portal vein. Gallbladder and biliary tree: The gallbladder is unremarkable, without evidence of calculi, wall thickening, or pericholecystic fluid. There is no sonographic Cruz sign. The common bile duct is normal in caliber measuring 4 mm. Kidneys: The right kidney measures 10.9 cm in length. The left kidney measures 10.8 cm in length. The kidneys are unremarkable, without evidence of masses, hydronephrosis, or calculi. Pancreas: The pancreatic head, neck, and body are unremarkable. The pancreatic tail is obscured by bowel gas. Spleen: The spleen is normal in size and contour, measuring 11.7 cm in length. Abdominal aorta and inferior vena cava: The visualized portions of the abdominal aorta and inferior vena cava are normal in caliber. There is no free fluid in the abdomen. US/US abdomen complete IMPRESSION: Unremarkable abdominal ultrasound. Electronically signed by: Bladimir Nieves MD 06/22/2025 10:51 AM EDT
== END 2025-06-22 10:04 | disposition home or self-care (01) ==
LOC: HO.US 10:03
PROVIDERS: PCP Physician Assistant; Visit Provider Internal Medicine
DX: R79.89 Other specified abnormal findings of blood chemistry (principal)
CPT/HCPCS: 76700

== ENCOUNTER → 2025-06-22 10:07 | Outpatient (BNV) | payer MEDICARE, SELFPAY | PROVIDERS: PCP Physician Assistant; Visit Provider Radiology Diagnostic Radiology | DX: R79.89 Other specified abnormal findings of blood chemistry (principal) | CPT/HCPCS: 76700 ==

== ENCOUNTER 2025-07-27 11:09 | Outpatient (AMB) | payer MEDICARE, SELFPAY ==
--- NOTE | 2025-07-27 11:15 | A.OFFPC_ITS ---
Vital Signs 07/27/25 11:16 Height 6 ft Weight 185 lb 6 oz BMI 25.1 BP 140/70 H Blood Pressure Location Lt brachial Position Sitting Pulse 49 L Pulse Source Pulse Oximeter Temp 97.1 F Temp Source Temporal Artery Scan Pulse Oximetry (%) 99 Oxygen Delivery Method Room Air Intake Visit Reasons: Follow-up type 2 diabetes Intake Note: Patient is here to follow up on DM. Core Microarchitect Required: No Substitute Nurse: Present Accompanied by: Spouse Allergies sulfacetamide Allergy (Verified 07/27/25 11:48) Hives Medication List - Last Reconciled 07/27/25 by Ernesto Sim PA-C atorvastatin 10 mg PO BEDTIME 90 days blood sugar diagnostic (Accu-Chek Guide test strips) Test once a day as needed hydroxyzine HCl 25 mg PO TID levothyroxine 75 mcg PO DAILY 90 days lisinopril 10 mg PO DAILY metformin ER 500 mg PO DAILY 90 days sertraline (Zoloft) 100 mg PO DAILY Tobacco use date assessed: 07/27/25 Fall risk assessment: No Falls in past year Last assessed Fall Risk: 07/27/25 Dental Screening Dental Screen Date: 03/22/25 HPI Follow-up type 2 diabetes HPI Details The patient is a 65-year-old male presenting with cervical and lumbar spine pain, tinnitus, and management of type 2 diabetes mellitus and hypertension. Left lower lid Entropion: The patient reports having both eyes operated on with new lenses inserted, which initially worked well, but he developed entropion in one eye causing redness and swelling by the end of the day. He has been advised to use lubricating eye drops and has tried taping the eyelid, but the condition persists, affecting his vision and causing discomfort. Cervical and lumbar spine disease: The patient experiences chronic cervical and lumbar spine pain, which has been ongoing for over a year, with pain radiating down his right leg and causing difficulty in sleeping and walking. He has tried managed care liaison and special pillows without relief. Has currently finished a full course of physical therapy and reports some improvement in his neck pain when doing therapy though now back to normal pain Sensorineural hearing loss and tinnitus: The patient reports tinnitus, which is constant and affects his ability to hear, especially in noisy environments. He uses [id number] hearing aids but finds them inadequate. Type 2 diabetes: The patient has a history of type 2 diabetes mellitus, managed with metformin, and his last HbA1c was 5.8%. He struggles with maintaining regular blood sugar monitoring due to insurance limitations. Hypertension: The patient has hypertension, currently managed with lisinopril, and his blood pressure was recorded at 152/74 mmHg during the visit. .. Hyperlipidemia: Continues on atorvastatin 10 mg with good effect on his lipid panel. Will continue to follow lipid panel with goal LDL to be below 100 .. Hypothyroidism: Continues on levothyroxine 75 mcg and he reports TSH has been stable. .. MDD: Does see a Reconciliation Coordinator (Dr Jahveri) whom he does not believe is helping him. The patient was experiencing depression, with symptoms including tremors, confusion, and insomnia, attributed to a high dose of sertraline. He has independently tapered the dose to 100 mg, which has alleviated some symptoms. Laboratory Tests 07/29/24 03/22/25 05/27/25 12:07 15:09 11:46 RBC 4.89 Fasting Glucose 111 H Hgb A1c (Clinic) 5.1 5.8 Triglycerides 203 H LDL Cholesterol, C alc 107 H TSH 2.94 PFSH Medical History Lumbar spine pain Laceration of finger Low back pain Neck pain Slow heart rate Nephrolithiasis Depression Right shoulder pain Bronchitis Cough H/O angiography History of left heart catheterization Acquired underactive thyroid Astigmatism Calculus of kidney in male Parathyroid hormone excess Unspecified essential hypertension Vitamin D deficiency Type 2 diabetes mellitus without obesity History of varicose veins Right hip pain Elevated cholesterol with high triglycerides Gout Chronic 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 Cataracts, both eyes Chronic right shoulder pain Bilateral leg pain Anxiety Surgical History Status post ablation of incompetent vein using laser History of cataract surgery Inguinodynia, right Status post inguinal hernia repair H/O parathyroidectomy Right inguinal hernia Social History Housing: House Are you a primary vocational childcare teacher to a significant other at home: Yes Do you presently have visiting nurse or other home services: No Alcohol intake: current Comment: 1-2 beers a month Patient Tobacco Use Status: Never used Tobacco Tobacco use type: Cigarette Years Smoked: marijuana 2023 e-Cigarette/Vaping Use: Former Use Second Hand Smoke Exposure: No service: No Current occupational status: employed Current occupation: [employer], Right hand dominate Cognitive needs: No Hearing needs: Yes Vision needs: Yes Questionnaire Thrive Questionnaire Date Thrive assessed: 03/20/25 I am a: Patient What is your living situation today?: I have a steady place to live Within the past 12 months, did the food you bought not last and you didn't have the money to get more?: I choose not to answer this question Within the past 12 months, did you worry whether your food would run out before you got money to buy more?: I choose not to answer this question Do you have trouble paying for medicines?: I choose not to answer this question Do you have trouble getting transportation to medical appointments?: Yes Do you have trouble paying your heating and electricity bill?: I choose not to answer this question Do you have trouble taking care of your child, family member or friend?: I choose not to answer this question Do you have trouble with day-to-day activities such as bathing, preparing meals, shopping, managing finances, etc.?: I choose not to answer this question Are you currently unemployed and looking for a job?: I choose not to answer this question Are you interested in more education?: No Please select the resources that you would like help with: Transportation Currently or been in a relationship where the following occur: I choose not to answer THRIVE Score: 1 BONIFACIO-7 AMB Questionnaire BONIFACIO-7 Date BONIFACIO - 7 assessed: 03/22/25 Source: Developed by Drs. Bladimir Terrell, Radha Mascorro, Ravin Tadeo and colleagues, with an educational andre from [employer]. Review of Systems Const Denies headache(s) Eyes Denies loss of vision ENT Denies vertigo, Denies dizziness, Denies headache(s) and Denies sore throat Card Denies chest pain, Denies leg edema and Denies lightheadedness Resp Denies cough, Denies hemoptysis and Denies wheezing GI Denies abdominal pain, Denies melena, Denies constipation, Denies diarrhea and Denies vomiting Denies dysuria, Denies urinary frequency and Denies urinary urgency Musc Denies arthralgias, Denies joint swelling, Denies numbness and Denies tingling Neuro Denies Abnormal speech present, Denies behavioral changes, Denies vertigo, Denies dizziness, Denies headache(s), Denies loss of vision, Denies memory loss, Denies numbness and Denies tingling Psych Denies anxiety, Denies behavioral changes, Denies depression, Denies memory loss and Denies panic attacks Branden/Lymph Denies easy bleeding and Denies easy bruising Aller/Immun Denies wheezing Physical exam (Primary Care) Vital Signs: Last Vital Signs Temp 97.1 F 07/27/25 11:16 Pulse 49 L 07/27/25 11:16 BP 140/70 H 07/27/25 11:16 Pulse Ox 99 07/27/25 11:16 Oxygen Delivery Method Room Air 07/27/25 11:16 BMI result Body Mass Index 25.1 Tobacco/Smoking Status: Tobacco use Status Tobacco use date assessed 07/27/25 07/27/25 11:33 Patient Tobacco Use Status Never used Tobacco 07/27/25 11:33 Tobacco use type Cigarette 07/27/25 11:33 e-Cigarette/Vaping Use Former Use 07/27/25 11:33 Thrive Assessment: Date of Thrive Assessment Date Thrive assessed 03/20/25 07/27/25 11:33 Currently or been in a relationship where the following occur: I choose not to answer Const General: healthy appearing, no acute distress, alert and awake Nutritional Appearance: well nourished Orientation/consciousness: oriented to person, oriented to place and oriented to time HENMT Ears: TM's normal bilaterally General nose exam: Normal nasal mucous membranes and turbinates present Eyes Conjunctivae: conjunctivae normal Sclerae: sclerae normal Pupils: Equal, round and reactive pupils present Neck Neck: Yes no lymphadenopathy and Yes no JVD Thyroid: Thyroid normal Carotids: no bruits Resp Effort & Inspection: normal respiratory effort and not tachypneic Auscultation: no crackles, no rales, no rhonchi and no wheezes Cardio Rate: regular rate Rhythm: regular rhythm Heart sounds: no murmurs and normal S1 and S2 GI Palpation (GI): Soft to palpation, nontender, no hepatomegaly and no splenomegaly Auscultation: normal bowel sounds Skin General skin exam: no rashes or lesions noted and dry skin Neuro General: oriented to person, oriented to place and oriented to time Cranial nerves: Yes Equal, round and reactive pupils present Speech: No Abnormal speech present Gait exam (Neuro): Normal gait present Motor exam (neuro): no tremor noted Extrem Right upper extremity: full ROM Left upper extremity: full ROM Right lower extremity: full ROM; no edema Left lower extremity: full ROM; no edema Psych Mental Status: mental status grossly normal Speech and movement: Normal speech and movement present Affect: normal affect Attitude: cooperative Thought process: Normal thought process present Results AMB Hemoglobin A1c AMB Hemoglobin A1c 5.8 % Last Edit by KATHY Day on 07/27/25 12:36 Results Reviewed Results Reviewed: Laboratory Last Values Hgb A1c (Clinic) 5.8 % (4.0-6.0) 07/27/25 11:15 Coding Level of Care Code Est Pt Level 4 (07222) Diagnoses Type 2 diabetes mellitus without obesity E11.9 Hypothyroidism, unspecified type E03.9 Hypothyroidism type: unspecified Mixed hyperlipidemia E78.2 Hyperlipidemia type: mixed hyperlipidemia Cervical spine disease M48.9 BONIFACIO (generalized anxiety disorder) F41.1 Assessment & Plan Assessment & Plan (1) Type 2 diabetes mellitus without obesity: Comment: Dr. Madrid-not anymore (Insurance) Code(s): E11.9 - Type 2 diabetes mellitus without complications Category: Medical Plan: Patient's type 2 diabetes is well controlled.. Most recent A1c of 5.8, Decrease the amount of carbohydrate intake, pasta, bread, rice and potatoes are all sugar and that is aside from all the sweet stuff, remember that fruits are good but they are Sweet also. Patient on metformin 500 mg once a day. Hemoglobin A1c goal of less than 6.5. (2) Hypothyroid: Code(s): E03.9 - Hypothyroidism, unspecified Category: Medical Qualifiers: Hypothyroidism type: unspecified Qualified Code(s): E03.9 - Hypothyroidism, unspecified Plan: Continue with thyroid medication, most recent TSH stable. (3) HLD (hyperlipidemia): Code(s): E78.5 - Hyperlipidemia, unspecified Category: Medical Qualifiers: Hyperlipidemia type: mixed hyperlipidemia Qualified Code(s): E78.2 - Mixed hyperlipidemia Plan: Avoid fried foods, chicken skin, eggs, butter margarine, pastries and meat. Be it pork or beef they have a lot of cholesterol LDL goal of less than 100 and triglyceride of less than 150 patient on atorvastatin 10 mg at bedtime (4) Cervical spine disease: Code(s): M48.9 - Spondylopathy, unspecified Category: Medical Plan: As above will try to set patient up with pain management for his chronic neck and lower back pain to offer a pain reduction modality. Has finished several weeks and physical therapy for his neck which did help temporarily though still in same amount of pain. Patient did try muscle relaxer though was not effective. Will try him on Celebrex to take as needed for pain. Will follow back up with pain management to see if there is any other pain reduction modality that can be offered. (5) BONIFACIO (generalized anxiety disorder): Comment: Dr. Jhaveri Code(s): F41.1 - Generalized anxiety disorder Category: Medical Plan: Patient followed by a psychiatrist whom will and does med management. He is looking to do cognitive behavioral therapy with the therapist. Will try to set him up with a counselor. He does explain he felt that he was having side effects of the high dose of sertraline at 200 mg, has been self weaning down to 100 mg and feels his symptoms have improved Orders: Orders AMB Hemoglobin A1c Today E11.9 - Type 2 diabetes mellitus without complications Lipid Panel Today E78.2 - Mixed hyperlipidemia Prostate Specific Antigen Scr Today M54.2 - Cervicalgia, Z12.5 - Encounter for screening for malignant neoplasm of prostate TSH reflex Free T4 Today E03.9 - Hypothyroidism, unspecified Hemoglobin A1c Today E11.9 - Type 2 diabetes mellitus without complications Complete Blood Count no Diff Today E11.9 - Type 2 diabetes mellitus without complications Comprehensive [place]. Panel Fast Today E11.9 - Type 2 diabetes mellitus without complications Referrals Counseling Referral F41.1 - Generalized anxiety disorder Medications: New celecoxib (Celebrex) 200 mg PO DAILY PRN 30 caps 1RF pain 30 days M54.2 - Cervicalgia
[2025-07-27 11:16] VITALS: BP 140/70; PULSE 49; TEMP 36.2; O2SAT 99; BMI 25.1
== END 2025-07-27 12:19 | disposition home or self-care (01) ==
LOC: HO.HMCH 11:09
PROVIDERS: PCP Physician Assistant; Visit Provider Physician Assistant
DX: E11.9 Type 2 diabetes mellitus without complications (principal); E03.9 Hypothyroidism, unspecified; E78.2 Mixed hyperlipidemia; M48.9 Spondylopathy, unspecified; F41.1 Generalized anxiety disorder

== ENCOUNTER → 2025-07-27 11:09 | Outpatient (BNVA) | payer MEDICARE, SELFPAY | PROVIDERS: PCP Physician Assistant; Visit Provider Physician Assistant | DX: E11.9 Type 2 diabetes mellitus without complications (principal); I10 Essential (primary) hypertension; H02.005 Unspecified entropion of left lower eyelid; M51.369 Other intervertebral disc degeneration, lumbar region without mention of lumbar back pain or lower extremity pain; M50.30 Other cervical disc degeneration, unspecified cervical region; H93.19 Tinnitus, unspecified ear; E78.5 Hyperlipidemia, unspecified; E03.9 Hypothyroidism, unspecified; E78.2 Mixed hyperlipidemia; M48.9 Spondylopathy, unspecified; F41.1 Generalized anxiety disorder | CPT/HCPCS: 83036; 99212 ==

== ENCOUNTER 2025-09-17 14:08 | Outpatient (AMB) | payer MEDICARE, SELFPAY ==
--- NOTE | 2025-09-17 14:13 | MHC.OFFVIS ---
Vital Signs 09/17/25 14:20 Height 6 ft Weight 183 lb 6 oz BMI 24.9 BP 169/77 H Blood Pressure Location Lt brachial Position Sitting Pulse 59 Pulse Source Pulse Oximeter Pulse Oximetry (%) 98 Oxygen Delivery Method Room Air Intake Visit Reasons: Follow Up After PT Intake Note: Pain today 03/27 Director Of Design Required: No Accompanied by: Self / Same As Patient Allergies sulfacetamide Allergy (Verified 09/20/25 09:25) Hives celecoxib (From Celebrex) Adverse Reaction (Mild, Verified 09/20/25 09:25) Upset stomach HPI Comments Details: The patient is a 65-year-old male presenting with chronic neck pain due to cervical spondylosis. The neck pain has been persistent and severe, rated as a 7 or 8 out of 10, and has significantly impacted his daily activities and sleep. Physical therapy was attempted but had to be discontinued due to increased pain. The patient reports tinnitus, which was exacerbated by previous medication use but has improved since tapering off sertraline. He underwent a hearing test that indicated high-frequency hearing loss, but he opted against using a hearing aid due to cost. The patient has a history of hypertension, managed with lisinopril, and type 2 diabetes mellitus, managed with metformin. He also takes atorvastatin for hyperlipidemia and thyroxine for hypothyroidism. The patient was previously on sertraline for depression but experienced severe side effects, including tremors and nausea, leading to discontinuation. He reports improvement in symptoms since stopping the medication, although nausea persists. - Onset: Chronic neck pain due to cervical spondylosis - Quality: Severe, rated 7 or 8 out of 10 - Location: Higher cervical spine, radiating to shoulders - Exacerbating factors: Physical therapy, certain sleeping positions - Relieving factors: Heating pad, gentle traction - Interference: Affects sleep, daily activities, and mood - Affect: Pain impacts mood and daily rhythm - Analgesia: No current pain medications due to interactions with other medications - Adverse Effects: Previous medications caused nausea and tremors - Activities of Daily Living: Pain affects sleep and ability to perform daily tasks - Aberrant Drug Related Behaviors: None reported [facility] Medical History Lumbar spine pain Laceration of finger Low back pain Neck pain Slow heart rate Nephrolithiasis Depression Right shoulder pain Bronchitis Cough H/O angiography History of left heart catheterization Acquired underactive thyroid Astigmatism Calculus of kidney in male Parathyroid hormone excess Unspecified essential hypertension Vitamin D deficiency Type 2 diabetes mellitus without obesity History of varicose veins Right hip pain Elevated cholesterol with high triglycerides Gout Chronic 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 Cataracts, both eyes Chronic right shoulder pain Bilateral leg pain Anxiety Surgical History Status post ablation of incompetent vein using laser History of cataract surgery Inguinodynia, right Status post inguinal hernia repair H/O parathyroidectomy Right inguinal hernia Social History Housing: House Are you a primary child care attendant to a significant other at home: Yes Do you presently have visiting nurse or other home services: No Alcohol intake: current Comment: 1-2 beers a month Patient Tobacco Use Status: Never used Tobacco Tobacco use type: Cigarette Years Smoked: marijuana 2023 e-Cigarette/Vaping Use: Former Use Second Hand Smoke Exposure: No service: No Current occupational status: employed Current occupation: [employer], Right hand dominate Cognitive needs: No Hearing needs: Yes Vision needs: Yes Review of Systems Narrative - Musculoskeletal: Reports chronic neck pain, difficulty turning neck - Neurological: Reports tinnitus, dizziness, and tremors - Cardiovascular: Reports hypertension - Endocrine: Reports hypothyroidism - Psychiatric: Reports depression, mood affected by pain Physical Exam Exam Exam: General: awake, alert, oriented. Answers questions appropriately. Fully engaged in examination. Skin: warm, dry, intact HEENT: Normocephalic. Hearing intact. Cardiac: External chest normal in appearance. Respiratory: No cough, audible wheezing or stridor. Abdomen: without gross distension. MS: No obvious swelling or deformities. Able to transition from sit to stand unassisted. Tender over midline cervical vertebrae and cervical paraspinal muscles Significantly decreased cervical range of motion in all planes Cervical lumbar facet loading positive Neurological: Oriented to person, place, time and situation. Thought process intact. Psychiatric: Appropriate mood and affect. Good judgment and insight. Vital Signs: Last Vital Signs Pulse 59 09/17/25 14:20 BP 169/77 H 09/17/25 14:20 Pulse Ox 98 09/17/25 14:20 Oxygen Delivery Method Room Air 09/17/25 14:20 BMI result Body Mass Index 24.9 Results Reviewed Results Reviewed: 05/28/25 x-ray lumbar spine Comparison: None provided Findings: Normal alignment. No acute fractures or dislocation. There is multiple level degenerative facet change. IMPRESSION: No acute findings. 05/28/25 x-ray cervical spine Findings: Normal alignment. No acute fractures or dislocation. There is multiple level degenerative disc change. Neural foramina are patent. No prevertebral soft tissue swelling. IMPRESSION: No acute findings. Assessment & Plan Assessment & Plan (1) Chronic neck pain: Code(s): M54.2 - Cervicalgia; G89.29 - Other chronic pain Category: Medical (2) Chronic back pain: Code(s): M54.9 - Dorsalgia, unspecified; G89.29 - Other chronic pain Category: Medical (3) Cervical spondylosis: Code(s): M47.812 - Spondylosis without myelopathy or radiculopathy, cervical region Category: Medical (4) Lumbar spondylosis: Code(s): M47.816 - Spondylosis without myelopathy or radiculopathy, lumbar region Category: Medical (5) Myofascial neck pain: Code(s): M54.2 - Cervicalgia Category: Medical (6) Cervical spine disease: Code(s): M48.9 - Spondylopathy, unspecified Category: Medical (7) Spinal stenosis of lumbar region with radiculopathy: Code(s): M48.061 - Spinal stenosis, lumbar region without neurogenic claudication; M54.16 - Radiculopathy, lumbar region Category: Medical Plan The plan for managing the patient's chronic neck pain includes submitting for test injections under x-ray guidance to determine the source of pain in the facet joints. If the injections provide relief, further treatments such as Sprint PNS, steroid injections or radiofrequency ablation may be considered. A mild muscle relaxer may be prescribed to help with pain management, particularly at night, but the patient can choose whether to use it given his current hesitancy to take medications. The patient will maintain a pain diary after the diagnostic injections to track the effectiveness of the injections and any changes in pain levels. The patient is advised to continue using non-pharmacological methods such as heating pads and gentle traction for pain relief. Schedule for fluoroscopy guided bilateral diagnostic C3 C4 C5 MBBS with local anesthetic. New prescription for Baclofen 5mg po TID as needed. Patient advised on caution for use. Patient was informed and verbally consented to the use of an ambient scribe for clinic note documentation during this visit. Medications: New baclofen 5 mg PO TID 90 tabs 3RF 30 days Patient Instructions: - Keep a pain diary to track pain levels and relief after injections. - Use heating pads and gentle traction for pain relief as needed. - Consider using the prescribed muscle relaxer at night if pain is severe. - Follow up with the clinic after the injections to discuss results and next steps. - Take baclofen as needed Coding Level of Care Code Est Pt Level 3 (93759) Complex EM visit Add On G2211 Diagnoses Chronic neck pain M54.2; G89.29 Chronic back pain M54.9; G89.29 Cervical spondylosis M47.812 Lumbar spondylosis M47.816 Myofascial neck pain M54.2 Cervical spine disease M48.9 Spinal stenosis of lumbar region with radiculopathy M48.061; M54.16
[2025-09-17 14:20] VITALS: BP 169/77; PULSE 59; O2SAT 98; BMI 24.9
== END 2025-09-17 14:38 | disposition home or self-care (01) ==
PROVIDERS: PCP Physician Assistant; Visit Provider Registered Nurse Emergency
DX: M54.2 Cervicalgia (principal); G89.29 Other chronic pain; M54.9 Dorsalgia, unspecified; M47.812 Spondylosis without myelopathy or radiculopathy, cervical region; M47.816 Spondylosis without myelopathy or radiculopathy, lumbar region; M48.9 Spondylopathy, unspecified; M48.061 Spinal stenosis, lumbar region without neurogenic claudication; M54.16 Radiculopathy, lumbar region
CPT/HCPCS: 99213; G2211

== ENCOUNTER → 2025-09-17 14:08 | Outpatient (BNVA) | payer MEDICARE, SELFPAY | PROVIDERS: PCP Physician Assistant; Visit Provider Registered Nurse Emergency | DX: M47.812 Spondylosis without myelopathy or radiculopathy, cervical region (principal); M47.816 Spondylosis without myelopathy or radiculopathy, lumbar region; M54.2 Cervicalgia; M54.9 Dorsalgia, unspecified; M48.9 Spondylopathy, unspecified; H93.19 Tinnitus, unspecified ear; M48.061 Spinal stenosis, lumbar region without neurogenic claudication; M54.16 Radiculopathy, lumbar region; I10 Essential (primary) hypertension | CPT/HCPCS: 99212 ==

== ENCOUNTER 2025-10-26 06:13 | Outpatient (REF) | payer MEDICARE, SELFPAY ==
--- NOTE | ~2025-10-26 | FL_ITS ---
EXAMINATION: FL GUIDANCE ONLY HISTORY: M47.812 - Spondylosis without myelopathy or radiculopathy, cervical region COMPARISON: None available. TECHNIQUE: Fluoroscopy time: 1 minute, 7 seconds. Cumulative Dose: 14.10 mGy. DAP: 3012.50 mGycm2 Images: 10. FINDINGS: Fluoroscopic spot films of the cervical spine demonstrate needles and contrast material in place at multiple levels bilaterally. FL/FL guidance in treatment room IMPRESSION: Fluoroscopy during procedure. Please see procedure report for additional information. Electronically signed by: Bladimir Nieves MD 10/26/2025 11:07 AM [facility]
[2025-10-27 17:29] LABS: Glucose, Whole Blood 137 mg/dL (60-115)
== END 2025-10-26 06:14 | disposition home or self-care (01) ==
LOC: CF 06:13
PROVIDERS: Visit Provider Anesthesiology
DX: M47.812 Spondylosis without myelopathy or radiculopathy, cervical region (principal); E11.9 Type 2 diabetes mellitus without complications
CPT/HCPCS: 64490; 64491; 82947; J2003; J2795; Q9967

== ENCOUNTER 2025-10-26 06:59 | Outpatient (AMB) | payer MEDICARE, SELFPAY ==
[2025-10-26 07:11] VITALS: BP 128/58; PULSE 45; RESP 16; O2SAT 100; BMI 24.8
--- NOTE | 2025-10-26 07:11 | MHC.OFFVIS ---
Vital Signs 10/26/25 07:11 10/26/25 08:11 Height 6 ft Weight 183 lb BMI 24.8 BP 128/58 L 157/70 H Blood Pressure Location Lt brachial Lt brachial Position Sitting Sitting Respiration 16 16 Pulse 45 L 54 Pulse Source Pulse Oximeter Pulse Oximeter Pulse Oximetry (%) 100 100 Oxygen Delivery Method Room Air Room Air Intake Visit Reasons: Bilateral Diagnostic C3-C4-C5 MBB Allergies sulfacetamide Allergy (Verified 09/20/25 09:25) Hives celecoxib (From Celebrex) Adverse Reaction (Mild, Verified 09/20/25 09:25) Upset stomach PFSH Medical History Lumbar spine pain Laceration of finger Low back pain Neck pain Slow heart rate Nephrolithiasis Depression Right shoulder pain Bronchitis Cough H/O angiography History of left heart catheterization Acquired underactive thyroid Astigmatism Calculus of kidney in male Parathyroid hormone excess Unspecified essential hypertension Vitamin D deficiency Type 2 diabetes mellitus without obesity History of varicose veins Right hip pain Elevated cholesterol with high triglycerides Gout Chronic 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 Cataracts, both eyes Chronic right shoulder pain Bilateral leg pain Anxiety Surgical History Status post ablation of incompetent vein using laser History of cataract surgery Inguinodynia, right Status post inguinal hernia repair H/O parathyroidectomy Right inguinal hernia Social History Housing: House Are you a primary pharmacy customer care specialist to a significant other at home: Yes Do you presently have visiting nurse or other home services: No Alcohol intake: current Comment: 1-2 beers a month Patient Tobacco Use Status: Never used Tobacco Tobacco use type: Cigarette Years Smoked: marijuana 2023 e-Cigarette/Vaping Use: Former Use Second Hand Smoke Exposure: No service: No Current occupational status: employed Current occupation: [employer], Right hand dominate Cognitive needs: No Hearing needs: Yes Vision needs: Yes Physical Exam Vital Signs: Last Vital Signs Pulse 54 10/26/25 08:11 Resp 16 10/26/25 08:11 BP 157/70 H 10/26/25 08:11 Pulse Ox 100 10/26/25 08:11 Oxygen Delivery Method Room Air 10/26/25 08:11 BMI result Body Mass Index 24.8 Assessment & Plan Assessment & Plan (1) Type 2 diabetes mellitus without obesity: Comment: Dr. Madrid-not anymore (Insurance) Code(s): E11.9 - Type 2 diabetes mellitus without complications Category: Medical (2) Spondylosis of cervical region without myelopathy or radiculopathy: Code(s): M47.812 - Spondylosis without myelopathy or radiculopathy, cervical region Category: Medical Plan Diagnostic medial branch block C2-C3-C4 bilateral. ? ?Informed consent was explained to the patient. All questions were explained and? answered.? The patient was taken inside the operating room where he was positioned prone on the operating table. Time-out was performed delineating correct site, side, the nature of the procedure, patient's allergy, . All operating room staff was participating in OR time-out procedure. ? ? The the upper back and posterior neck was prepped with ChloraPrep and draped with sterile towels.? C-arm was brought over the operating field and sq picture of C2-C3-C4 vertebra were delineated on the screen.? Point of interest were delineated as lateral masses of the vertebras as above with the bilateral waist of each lateral mass as the target of the final needle position.? The projection of the point of interest to the skin were injected with the small amount of local anesthetic lidocaine 2% mixed with ropivacaine 0.5% 1-1 approximately 1 cc.? After that three 22 gauge 3.5 inch spinal needles were driven sequentially to the points of interest in tunnel vision fashion first on the right and after that on the left.. Lateral view demonstrating appropriate needles positioned. At the point of interests the needle was injected with small amount of the contrast.? The injection of the contrast did not demonstrate any intravascular or intrathecal spread of the contrast.? After that injection of the?ropivacaine 0.5%-1ccof was performed at each needle location.?? after that the needles were removed and Bandaids were applied. Patient tolerated the procedure well he was taken outside of the operating room to recovery room. He experienced moderate dizziness after the procedure which would be expected, however patient is diabetic and we decided to measure his blood sugar. His blood sugar was 137. Very soon his dizziness became better however licensed loan officer assistant Bessy Mora insisted on bringing patient down his car in the wheelchair. Orders: Orders FL guidance in treatment room Today Gricel Higgins, PHOTOGRAPHY SPOTTER, CORRECTIVE AND MANUAL ARTS THERAPIST M47.812 - Spondylosis without myelopathy or radiculopathy, cervical region Glucose, Whole Blood Today Rogelio Golden MD E11.9 - Type 2 diabetes mellitus without complications Coding Level of Care Code Procedure Only Diagnoses Type 2 diabetes mellitus without obesity E11.9 Spondylosis of cervical region without myelopathy or radiculopathy M47.812
[2025-10-26 08:11] VITALS: BP 157/70; PULSE 54; RESP 16; O2SAT 100
== END 2025-10-26 08:21 | disposition home or self-care (01) ==
LOC: HO.PMCPRC 06:59
PROVIDERS: PCP Physician Assistant; Visit Provider Anesthesiology
DX: M47.812 Spondylosis without myelopathy or radiculopathy, cervical region (principal)
CPT/HCPCS: 64490; 64491

== ENCOUNTER 2025-10-29 14:40 | Outpatient (AMB) | payer MEDICARE, SELFPAY ==
--- NOTE | 2025-10-29 14:41 | MHC.OFFVIS ---
Vital Signs 10/29/25 14:42 Height 6 ft Weight 175 lb BMI 23.7 BP 139/74 Blood Pressure Location Lt brachial Position Sitting Respiration 16 Pulse 57 Pulse Source Pulse Oximeter Pulse Oximetry (%) 100 Oxygen Delivery Method Room Air Intake Visit Reasons: S/P Bilateral Diagnostic C3-C4-C5 MBB Operator Automated Process Required: No Accompanied by: Life Partner Allergies sulfacetamide Allergy (Verified 10/29/25 14:47) Hives celecoxib (From Celebrex) Adverse Reaction (Mild, Verified 10/29/25 14:47) Upset stomach HPI Comments Details: The patient is a 65 year old male presenting for follow-up after a diagnostic nerve block for chronic neck pain. He underwent the procedure three days ago, which was a test injection to identify the source of his pain, confirmed to be arthritis in his C2, C3, and C4 vertebrae. Post-procedure, his pain improved by 80% for at least 6 hours, though it returned by the evening, which was the expected outcome for the diagnostic test. The patient reports ongoing symptoms including cracking sounds in his neck with movement, stiffness, and sleep disturbance requiring a heating pad. His range of motion remains limited, and he experiences significant difficulty in the morning, needing to brace his head and use the wall to sit up from a lying position, although the discomfort eases with movement. His neck pain is also associated with headaches. - Location: Pain is localized to the upper cervical spine (C2-C4 area) and is associated with headaches. - Onset/Timing: Chronic pain that is worse in the mornings and interferes with sleep. - Quality: Reports cracking sounds with movement and stiffness. - Severity: Baseline pain is an 8/10, which temporarily improved by 80% after recent diagnostic injections. - Modifying Factors: Pain is alleviated by movement and a heating pad; it is exacerbated by inactivity and in the morning upon waking. - Functional Impact: Causes fitful sleep and requires him to brace himself to get out of bed. - Analgesia: He achieved temporary pain relief from a diagnostic block, with pain reducing by 80%. - Affect: The patient reports fitful sleep due to pain and experienced elevated blood pressure and felt shaky post-procedure. - Activities of Daily Living: Pain and stiffness are worse in the morning, requiring him to brace his head to sit up. - Adverse Effects: No medication adverse effects discussed. - Aberrant Drug-Related Behaviors: No aberrant behaviors discussed. [facility] Medical History Lumbar spine pain Laceration of finger Low back pain Neck pain Slow heart rate Nephrolithiasis Depression Right shoulder pain Bronchitis Cough H/O angiography History of left heart catheterization Acquired underactive thyroid Astigmatism Calculus of kidney in male Parathyroid hormone excess Unspecified essential hypertension Vitamin D deficiency Type 2 diabetes mellitus without obesity History of varicose veins Right hip pain Elevated cholesterol with high triglycerides Gout Chronic 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 Cataracts, both eyes Chronic right shoulder pain Bilateral leg pain Anxiety Surgical History Status post ablation of incompetent vein using laser History of cataract surgery Inguinodynia, right Status post inguinal hernia repair H/O parathyroidectomy Right inguinal hernia Social History Housing: House Are you a primary career and technology education teacher to a significant other at home: Yes Do you presently have visiting nurse or other home services: No Alcohol intake: current Comment: 1-2 beers a month Patient Tobacco Use Status: Never used Tobacco Tobacco use type: Cigarette Years Smoked: marijuana 2023 e-Cigarette/Vaping Use: Former Use Second Hand Smoke Exposure: No service: No Current occupational status: employed Current occupation: [employer], Right hand dominate Cognitive needs: No Hearing needs: Yes Vision needs: Yes Review of Systems Narrative - Neurological: Reports headaches associated with his neck pain. - Musculoskeletal: Reports neck pain, stiffness, limited range of motion, and cracking sounds with neck movement. - Constitutional: Reports sleep disturbance, described as fitful sleep. Physical Exam Exam Exam: General: awake, alert, oriented. Answers questions appropriately. Fully engaged in examination. Skin: warm, dry, intact HEENT: Normocephalic. Hearing intact. Cardiac: External chest normal in appearance. Respiratory: No cough, audible wheezing or stridor. Abdomen: without gross distension. MS: No obvious swelling or deformities. Neurological: Oriented to person, place, time and situation. Thought process intact. Psychiatric: Appropriate mood and affect. Good judgment and insight. Vital Signs: Last Vital Signs Pulse 57 10/29/25 14:42 Resp 16 10/29/25 14:42 BP 139/74 12/12/25 14:42 Pulse Ox 100 10/29/25 14:42 Oxygen Delivery Method Room Air 10/29/25 14:42 BMI result Body Mass Index 23.7 Results Reviewed Results Reviewed: 05/28/25 x-ray lumbar spine Comparison: None provided Findings: Normal alignment. No acute fractures or dislocation. There is multiple level degenerative facet change. IMPRESSION: No acute findings. 05/28/25 x-ray cervical spine Findings: Normal alignment. No acute fractures or dislocation. There is multiple level degenerative disc change. Neural foramina are patent. No prevertebral soft tissue swelling. IMPRESSION: No acute findings. Assessment & Plan Assessment & Plan (1) Chronic neck pain: Code(s): M54.2 - Cervicalgia; G89.29 - Other chronic pain Category: Medical (2) Chronic back pain: Code(s): M54.9 - Dorsalgia, unspecified; G89.29 - Other chronic pain Category: Medical (3) Cervical spondylosis: Code(s): M47.812 - Spondylosis without myelopathy or radiculopathy, cervical region Category: Medical (4) Lumbar spondylosis: Code(s): M47.816 - Spondylosis without myelopathy or radiculopathy, lumbar region Category: Medical (5) Myofascial neck pain: Code(s): M54.2 - Cervicalgia Category: Medical (6) Cervical spine disease: Code(s): M48.9 - Spondylopathy, unspecified Category: Medical (7) Spinal stenosis of lumbar region with radiculopathy: Code(s): M48.061 - Spinal stenosis, lumbar region without neurogenic claudication; M54.16 - Radiculopathy, lumbar region Category: Medical Plan The patient has had a positive response to a diagnostic cervical medial branch block, confirming cervical facet arthropathy at C2-C4 as the primary generator of his chronic neck pain and associated headaches. Treatment options for long-term relief were discussed, including repeat injections with steroids, radiofrequency ablation (RFA), and a SPRINT peripheral nerve stimulator. The patient expressed a preference for radiofrequency ablation, as it is a single procedure that does not require ongoing daily maintenance. A prior authorization for cervical RFA will be submitted to his insurance. The patient was advised that his insurance may require a repeat set of therapeutic injections with steroids before approving the RFA. If required, the injections would be performed one side at a time to improve tolerability. The office will contact the patient to schedule the appropriate procedure once insurance determination is complete. Patient was informed and verbally consented to the use of an ambient scribe for clinic note documentation during this visit. Patient Instructions: - Your recent test injection in your neck worked well, which helps us confirm where your pain is coming from. - We will ask your insurance to approve a procedure called radiofrequency ablation (RFA), which can provide pain relief for up to a year. - This procedure uses heat to treat the small nerves sending pain signals from your neck joints. - It is possible your insurance will require you to have another set of injections with steroid medicine before approving the RFA. - Our office will call you to schedule the next step once we hear back from your insurance company. Coding Level of Care Code Est Pt Level 3 (16863) Add On Problem Visit Only Diagnoses Chronic neck pain M54.2; G89.29 Chronic back pain M54.9; G89.29 Cervical spondylosis M47.812 Lumbar spondylosis M47.816 Myofascial neck pain M54.2 Cervical spine disease M48.9 Spinal stenosis of lumbar region with radiculopathy M48.061; M54.16
[2025-10-29 14:42] VITALS: BP 139/74; PULSE 57; RESP 16; O2SAT 100; BMI 23.7
== END 2025-10-29 15:22 | disposition home or self-care (01) ==
LOC: HO.PMC 14:40
PROVIDERS: PCP Physician Assistant; Visit Provider Registered Nurse Emergency
DX: M54.2 Cervicalgia (principal); G89.29 Other chronic pain; M54.9 Dorsalgia, unspecified; M47.812 Spondylosis without myelopathy or radiculopathy, cervical region; M47.816 Spondylosis without myelopathy or radiculopathy, lumbar region; M48.9 Spondylopathy, unspecified; M48.061 Spinal stenosis, lumbar region without neurogenic claudication; M54.16 Radiculopathy, lumbar region
CPT/HCPCS: 99213; G2211

== ENCOUNTER → 2025-10-29 14:40 | Outpatient (BNVA) | payer MEDICARE, SELFPAY | PROVIDERS: PCP Physician Assistant; Visit Provider Registered Nurse Emergency | DX: M54.2 Cervicalgia (principal); M47.812 Spondylosis without myelopathy or radiculopathy, cervical region; M47.816 Spondylosis without myelopathy or radiculopathy, lumbar region; M48.9 Spondylopathy, unspecified; M48.061 Spinal stenosis, lumbar region without neurogenic claudication; M54.16 Radiculopathy, lumbar region; G89.29 Other chronic pain | CPT/HCPCS: 99212 ==